=== PATIENT | female | born 1950 | race Caucasian/White ===

== ENCOUNTER 2018-05-02 23:19 | Emergency (ER) | payer OTHER ==
--- OUTSIDE RECORDS SUMMARY | 2018-05-02 23:21 | XMS REPORT | Clinical Summary ---
:1950 Author Organization [facility] Address [address] [place] [address] Care Team Providers Name Role Phone Francisco Javier Ivey MD Primary Care Provider Allergies Active Allergy Reactions Severity Noted Date Comments Meperidine 03/13/2018 Latex 03/13/2018 Penicillins 03/13/2018 Sulfa (Sulfonamide Antibiotics) 03/13/2018 Medications Medication Sig Dispensed Refills Start Date End Date Status lisinopril Take 20 mg by 0 Active (PRINIVIL,ZESTRIL) 20 mouth daily. mg tablet pravastatin (PRAVACHOL) Take 40 mg by 0 Active 40 MG tablet mouth daily. omeprazole (PriLOSEC) Take 20 mg by 0 Active 20 MG capsule mouth daily. citalopram (CeleXA) 10 Take 10 mg by 0 Active MG tablet mouth daily. Active Problems Not on file Encounters Date Type Specialty Care Team Description 03/18/2018 Anesthesia Event Orthopedic Surgery Julio Solano II, MD 03/18/2018 Surgery Orthopedic Surgery Tyson, ARTHROSCOPY SHOULDER Ced Fuentes MD DECOMPRESSION 03/18/2018 Hospital Encounter Orthopedic Surgery Ced Mehta MD after 05/01/2017 Social History Tobacco Use Types Packs/Day Years Used Date Never Smoker Smokeless Tobacco: Never Used Alcohol Use Drinks/Week oz/Week Comments No Sex Assigned at Date Recorded Not on file Job Start Date Occupation Industry Not on file Not on file Not on file Travel History Travel Start Travel End No recent travel history available. Last Filed Vital Signs Vital Sign Reading Time Taken Blood Pressure 134/63 03/18/2018 10:46 AM CDT Pulse 72 03/18/2018 10:46 AM CDT Temperature 36.4 C (97.6 F) 03/18/2018 10:33 AM CDT Respiratory Rate 20 03/18/2018 10:46 AM CDT Oxygen Saturation 94% 03/18/2018 10:46 AM CDT Inhaled Oxygen Concentration - - Weight 89.4 kg (197 lb) 03/18/2018 6:30 AM CDT Height 168.9 cm (5' 6.5") 03/18/2018 6:30 AM CDT Body Mass Index 31.32 03/18/2018 6:30 AM CDT Plan of Treatment Not on file Procedures Procedure Name Priority Date/Time Associated Diagnosis Comments AL AN ELECTIVE Routine 03/18/2018 7:39 AM ENDOTRACHEAL AIRWAY CDT Procedure Note - Samantha Robertson Jr., CRNA - 03/18/2018 7:39 AM CDT Airway Date/Time: 03/18/2018 7:39 AM Performed by: SAMANTHA ROBERTSON JR Authorized by: JULIO SOLANO II Location: OR Urgency: Elective Difficult Airway: No Performed by: resident/FLY FISHING GUIDE/AA Preoxygenated with 100% O2: Yes C-spine Precautions Maintained Throughout: Yes Mask Ventilation: Easy mask Final Airway Type: Endotracheal airway Final Endotracheal Airway: ETT Cuffed: Yes Technique Used: Direct laryngoscopy Devices/Methods Used in Placement: Intubating stylet Insertion Site: Oral Blade Type: Kaiser Laryngoscope Blade/Videolaryngoscope Blade Size: 2 ETT Size (mm): 7.0 Cuff at minimum occlusion pressure: Yes Measured from: Lips ETT to Lips (cm): 22 Placement Verified by: CO2 detection, direct visualization and equal breath sounds Laryngoscopic view: Grade I - full view of glottis Rapid Sequence Induction (RSI): No Modified RSI: No Number of Attempts at Approach: 1 ARTHROSCOPY, SHOULDER 03/18/2018 7:30 AM CDT Calcific tendinitis of right shoulder after 05/01/2017 Results Not on fileafter 05/01/2017 Insurance Payer Benefit Plan / Group Subscriber ID Type Phone Address HUMANA MEDICARE HUMANA MEDICARE PPO/PFFS/ERS [facility] xxxxxxxxx PPO [phone] (Work) Advance Directives Patient has advance care planning documents on file. For more information, please contact:Vincent Gilmore[address] [place] [address]
[2018-05-03] MEDS ORDERED: ALBUTEROL 2.5 MG/3 ML NEB SOL ONE (01:35)
[2018-05-03] MEDS ORDERED: DEXAMETHASONE 10 MG/ML VIAL ONE (01:35)
--- NOTE | 2018-05-03 01:50 | ER ---
Nurse's Notes [facility] Name: Lucia Guardado Age: 68 yrs Sex: Female : 1950 Arrival Date: 05/02/2018 Time: 23:23 Bed 17 Private MD: Cordelia Ivey C Diagnosis: Acute laryngitis;Cough Presentation: 05/02 23:42 Presenting complaint: Patient states: that yesterday she started ot having a sore fc throat and left ear pain. Throat now hurts to swallow. Transition of care: patient was not received from another setting of care. Onset of symptoms was May 01, 2018. Risk Assessment: Do you want to hurt yourself or someone else? Patient reports no desire to harm self or others. Initial Sepsis Screen: Does the patient meet any 2 criteria? No. Patient's initial sepsis screen is negative. Does the patient have a suspected source of infection? No. Patient's initial sepsis screen is negative. Care prior to arrival: None. 23:42 Method Of Arrival: Ambulatory 23:42 Acuity: TAB 4 fc Historical: - Allergies: 23:45 Codeine; fc 23:45 Sulfa (Sulfonamide Antibiotics); fc 23:45 PENICILLINS; fc - Home Meds: 23:45 Centrum Oral daily [Active]; lisinopril 20 mg Oral tab 1 tab once daily [Active]; fc omeprazole 20 mg Oral cpDR 1 cap 2 times per day [Active]; citalopram 10 mg tab 1 tab once daily [Active]; - PMHx: 23:45 Anxiety; Hypertension; Hyperlipidemia; GERD; fc - PSHx: 23:45 ; Appendectomy; fc - Immunization history:: Last tetanus immunization: up to date Flu vaccine is up to date. - Social history:: Smoking status: Patient/guardian denies using tobacco, Patient/guardian denies using alcohol, street drugs. - Ebola Screening: : Patient negative for fever greater than or equal to 101.5 degrees Fahrenheit, and additional compatible Ebola Virus Disease symptoms Patient denies exposure to infectious person Patient denies travel to an Ebola-affected area in the 21 days before illness onset. Screenin:47 Abuse screen: Denies threats or abuse. Nutritional screening: No deficits noted. fc Tuberculosis screening: No symptoms or risk factors identified. Fall Risk None identified. Assessment: 05/03 00:07 General: Appears in no apparent distress. comfortable, Behavior is calm, cooperative, rr5 appropriate for age. Pain: Complains of pain in left ear and throat Pain currently is 6 out of 10 on a pain scale. Quality of pain is described as aching, Pain began gradually, Is intermittent. Neuro: Level of Consciousness is awake, alert, obeys commands, Oriented to person, place, time. Cardiovascular: Capillary refill is > 3 seconds Patient's skin is warm and dry. Respiratory: Reports cough that is Airway is patent Respiratory effort is even, unlabored, Respiratory pattern is regular, symmetrical, Breath sounds are clear bilaterally. GI: Abdomen is round. : No signs and/or symptoms were reported regarding the genitourinary system. EENT: Ear canal yellowish, dry substance noted in the left ear . Throat is reddened with gag reflex present. 01:20 Reassessment: awaiting for result. no complaints made. rr5 02:34 Reassessment: Patient appears in no apparent distress at this time. Patient and/or rr5 family updated on plan of care and expected duration. Pain level reassessed. discharge instruction and prescription explained without questions made. Patient states feeling better. Patient states symptoms have improved. Vital Signs: 05/02 23:45 BP 155 / 68; Pulse 76; Resp 18; Temp 98.0(O); Pulse Ox 96% on R/A; Weight 88.9 kg (R); fc Height 5 ft. 6 in. (167.64 cm) (R); Pain 6/10; 05/03 00:11 BP 139 / 63; Pulse 75; Resp 17; Pulse Ox 98% on R/A; rr5 02:00 BP 153 / 61; Pulse 72; Resp 18; Pulse Ox 100% on R/A; rr5 02:34 BP 143 / 70; Pulse 70; Resp 17; Pulse Ox 99% on R/A; rr5 05/02 23:45 Body Mass Index 31.63 (88.90 kg, 167.64 cm) ED Course: 05/02 23:23 Patient arrived in ED. es 23:23 Cordelia Ivey MD is Private Physician. es 23:43 Triage completed. fc 23:45 Arm band placed on Patient placed in an exam room, on a stretcher. fc 23:47 Patient has correct armband on for positive identification. Bed in low position. Call light in reach. Side rails up X 1. 12 00:02 Ronan Pittman, RN is Primary Nurse. rr5 00:46 Lyndsay Olvera FNP-C is [facility]. snw 00:46 Jace Harrell MD is Attending Physician. snw 01:49 Cordelia Ivey MD is Referral Physician. snw 02:36 No provider procedures requiring assistance completed. Patient did not have IV access rr5 during this emergency room visit. Administered Medications: 01:35 Drug: Albuterol 2.5 mg Route: Inhalation; rr5 02:32 Follow up: Response: No adverse reaction; Marked relief of symptoms rr5 01:37 Drug: Decadron - Dexamethasone 10 mg {Note: po.} Route: IVP; Site: Other; rr5 02:32 Follow up: Response: No adverse reaction; Marked relief of symptoms rr5 Outcome: 01:50 Discharge ordered by MD. snw 02:36 Discharged to home ambulatory, with family. rr5 02:36 Condition: stable 02:36 Discharge instructions given to patient, family, Instructed on discharge instructions, follow up and referral plans. medication usage, Demonstrated understanding of instructions, follow-up care, medications, Prescriptions given X 3. 02:37 Patient left the ED. rr5 Signatures: Lyndsay Olvera FNP-C FNP-Serena Gaston Felicia, RN RN Ronan Pittman, RN RN rr5
--- NOTE | 2018-05-03 01:51 | EDPHYS ---
Physician Documentation [facility] Name: Lucia Guardado Age: 68 yrs Sex: Female : 1950 Arrival Date: 05/02/2018 Time: 23:23 Bed 17 Private MD: Cordelia Ivey C ED Physician Jace Harrell HPI: 05/03 01:12 This 68 yrs old Female presents to ER via Ambulatory with complaints of Sore snw Throat, Ear Pain. 01:12 The patient presents with sore throat. The patient describes throat pain as constant, snw scratchy. Onset: The symptoms/episode began/occurred suddenly, today. Severity of symptoms: At their worst the symptoms were moderate. Associated signs and symptoms: Pertinent positives: cough, Pertinent negatives fever. The patient has not experienced similar symptoms in the past. The patient has not recently seen a physician. Historical: - Allergies: 05/02 23:45 Codeine; fc 23:45 Sulfa (Sulfonamide Antibiotics); fc 23:45 PENICILLINS; fc - Home Meds: 23:45 Centrum Oral daily [Active]; lisinopril 20 mg Oral tab 1 tab once daily [Active]; fc omeprazole 20 mg Oral cpDR 1 cap 2 times per day [Active]; citalopram 10 mg tab 1 tab once daily [Active]; - PMHx: 23:45 Anxiety; Hypertension; Hyperlipidemia; GERD; fc - PSHx: 23:45 ; Appendectomy; fc - Immunization history:: Last tetanus immunization: up to date Flu vaccine is up to date. - Social history:: Smoking status: Patient/guardian denies using tobacco, Patient/guardian denies using alcohol, street drugs. - Ebola Screening: : Patient negative for fever greater than or equal to 101.5 degrees Fahrenheit, and additional compatible Ebola Virus Disease symptoms Patient denies exposure to infectious person Patient denies travel to an Ebola-affected area in the 21 days before illness onset. ROS: 05/03 01:11 Constitutional: Negative for fever, chills, and weight loss, Eyes: Negative for injury, snw pain, redness, and discharge, ENT: Negative for injury and discharge, positive for sore throat Neck: Negative for injury, pain, and swelling. Cardiovascular: Negative for chest pain, palpitations, and edema. Abdomen/GI: Negative for abdominal pain, nausea, vomiting, diarrhea, and constipation, Back: Negative for injury and pain, : Negative for injury, bleeding, discharge, and swelling, MS/Extremity: Negative for injury and deformity, Skin: Negative for injury, rash, and discoloration, Neuro: Negative for headache, weakness, numbness, tingling, and seizure. Respiratory: Positive for cough, Negative for sputum production. Exam: : Constitutional: This is a well developed, well nourished patient who is awake, alert, snw and in no acute distress. Head/Face: Normocephalic, atraumatic. Eyes: Pupils equal round and reactive to light, extra-ocular motions intact. Lids and lashes normal. Conjunctiva and sclera are non-icteric and not injected. Cornea within normal limits. Periorbital areas with no swelling, redness, or edema. Neck: Trachea midline, no thyromegaly or masses palpated, and no cervical lymphadenopathy. Supple, full range of motion without nuchal rigidity, or vertebral point tenderness. No Meningismus. Chest/axilla: Normal chest wall appearance and motion. Nontender with no deformity. No lesions are appreciated. Cardiovascular: Regular rate and rhythm with a normal S1 and S2. No gallops, murmurs, or rubs. Normal PMI, no JVD. No pulse deficits. Abdomen/GI: Soft, non-tender, with normal bowel sounds. No distension or tympany. No guarding or rebound. No evidence of tenderness throughout. Back: No spinal tenderness. No costovertebral tenderness. Full range of motion. Skin: Warm, dry with normal turgor. Normal color with no rashes, no lesions, and no evidence of cellulitis. MS/ Extremity: Pulses equal, no cyanosis. Neurovascular intact. Full, normal range of motion. Neuro: Awake and alert, GCS 15, oriented to person, place, time, and situation. Cranial nerves II-XII grossly intact. Motor strength 5/5 in all extremities. Sensory grossly intact. Cerebellar exam normal. Normal gait. : ENT: Ear canal(s): are normal, TM's: are normal, Nose: is normal, Mouth: is normal, Posterior pharynx: is normal, Uvula: midline, erythema, that is moderate, Voice: is hoarse. 01:09 Respiratory: the patient does not display signs of respiratory distress, Respirations: normal, Breath sounds: wheezing: expiratory that is mild, is scattered. Vital Signs: 05/02 23:45 BP 155 / 68; Pulse 76; Resp 18; Temp 98.0(O); Pulse Ox 96% on R/A; Weight 88.9 kg (R); fc Height 5 ft. 6 in. (167.64 cm) (R); Pain 6/10; 05/03 00:11 BP 139 / 63; Pulse 75; Resp 17; Pulse Ox 98% on R/A; rr5 02:00 BP 153 / 61; Pulse 72; Resp 18; Pulse Ox 100% on R/A; rr5 02:34 BP 143 / 70; Pulse 70; Resp 17; Pulse Ox 99% on R/A; rr5 05/02 23:45 Body Mass Index 31.63 (88.90 kg, 167.64 cm) fc MDM: 01:00 Patient medically screened. snw 01:51 Data reviewed: vital signs, nurses notes. Data interpreted: Pulse oximetry: on room air snw is 98 %. Interpretation: normal. Counseling: I had a detailed discussion with the patient and/or guardian regarding: the historical points, exam findings, and any diagnostic results supporting the discharge/admit diagnosis, the presence of at least one elevated blood pressure reading (>120/80) during this emergency department visit, the need for outpatient follow up, to return to the emergency department if symptoms worsen or persist or if there are any questions or concerns that arise at home. Special discussion: Based on the history and exam findings, there is no indication for further emergent testing or inpatient evaluation. I discussed with the patient/guardian the need to see the primary care provider for further evaluation of the symptoms. 05/03 00:22 Order name: Strep fc 05/03 00:47 Order name: Flu snw 05/03 00:56 Order name: Group A Streptococcus Rapid Sc; Complete Time: : EDMS 05/03 01:41 Order name: Influenza Screen (A ; Complete Time: :48 EDMS Administered Medications: 01:35 Drug: Albuterol 2.5 mg Route: Inhalation; rr5 02:32 Follow up: Response: No adverse reaction; Marked relief of symptoms rr5 01:37 Drug: Decadron - Dexamethasone 10 mg {Note: po.} Route: IVP; Site: Other; rr5 02:32 Follow up: Response: No adverse reaction; Marked relief of symptoms rr5 Disposition: 07:05 Co-signature as Attending Physician, Jace Harrell MD. Disposition: 05/03/18 01:50 Discharged to Home. Impression: Acute laryngitis, Cough. - Condition is Stable. - Discharge Instructions: Laryngitis, Cool Mist Vaporizer, Cough, Adult, [id number]. - Prescriptions for Zyrtec 10 mg Oral Tablet - take 1 tablet by ORAL route once daily As needed; 20 tablet. Prednisone 20 mg Oral Tablet - take 2 tablet by ORAL route once daily for 5 days; 10 tablet. Pepcid 20 mg Oral Tablet - take 1 tablet by ORAL route once daily; 20 tablet. - Medication Reconciliation Form, Thank You Letter, Antibiotic Education, Prescription Opioid Use form. - Follow up: Cordelia Ivey MD; When: 2 - 3 days; Reason: Recheck today's complaints, Continuance of care, Re-evaluation by your physician. Follow up: Emergency Department; When: As needed; Reason: Worsening of condition. Signatures: Dispatcher [employer] EDMS Lyndsay Olvera, MIMA-C LABORATORY CHEMICAL ASSISTANT-Csnw Odalis Mars RN RN Jace Harrell MD MD Ronan Pittman RN RN rr5 Corrections: (The following items were deleted from the chart) 02:37 01:50 05/03/2018 01:50 Discharged to Home. Impression: Acute laryngitis; Cough. rr5 Condition is Stable. Forms are Medication Reconciliation Form, Thank You Letter, Antibiotic Education, Prescription Opioid Use. Follow up: Cordelia Ivey; When: 2 - 3 days; Reason: Recheck today's complaints, Continuance of care, Re-evaluation by your physician. Follow up: Emergency Department; When: As needed; Reason: Worsening of condition. snw
[2018-05-03 13:07] VITALS: TEMP 98
[2018-05-03 13:11] VITALS: BP 143/70; O2SAT 99
== END 2018-05-03 02:37 | disposition home or self-care (01) ==
LOC: ER 23:19
DX: J04.0 Acute laryngitis (principal); R05 Cough; E78.5 Hyperlipidemia, unspecified; I10 Essential (primary) hypertension; K21.9 Gastro-esophageal reflux disease without esophagitis; F41.9 Anxiety disorder, unspecified; Z79.899 Other long term (current) drug therapy
CPT/HCPCS: 87070; 87081; 87804 ×2; 96374; 99284; J1100

== ENCOUNTER 2018-10-08 09:05 | Observation (INO) | payer OTHER ==
--- OUTSIDE RECORDS SUMMARY | 2018-10-08 09:24 | XMS REPORT | Clinical Summary ---
:1950 Author Organization [facility] Address [address] [place] [address] Care Team Providers Name Role Phone Francisco [...] Encounter Orthopedic Surgery Ced Mehta MD after 10/07/2017 Social History Tobacco Use Types Packs/Day Years [...] Procedure Name Priority Date/Time Associated Diagnosis Comments MA AN ELECTIVE Routine 03/18/2018 7:39 AM ENDOTRACHEAL AIRWAY CDT Procedure Note - Samantha Robertson Jr., CRNA - 03/18/2018 7:39 AM CDT Airway Date/Time: 03/18/2018 7:39 AM Performed by: SAMANTHA ROBERTSON JR Authorized by: JULIO SOLANO II Location: OR Urgency: Elective Difficult Airway: No Performed by: resident/OUTREACH LIAISON/AA Preoxygenated with 100% O2: Yes C-spine Precautions [...] CDT Calcific tendinitis of right shoulder after 10/07/2017 Results Not on fileafter 10/07/2017 Insurance Payer Benefit Plan / Group Subscriber ID Type Phone Address HUMANA MEDICARE HUMANA MEDICARE PPO/PFFS/ERS [facility] xxxxxxxxx PPO [phone] (Work) Advance Directives Patient has advance care planning documents on file. For more information, please contact:Vincent Gilmore[address] [place] [address]
--- NOTE | 2018-10-08 12:04 | RAD REPORT ---
EXAM DESCRIPTION: Bienvenido Martino (2 Views)10/08/2018 11:56 am CLINICAL HISTORY: Hypotension COMPARISON: February 2018 FINDINGS: The lungs appear clear of acute infiltrate. The heart is normal size IMPRESSION: No acute abnormalities displayed
[2018-10-08] MEDS: CEFTRIAXONE/SWI 1gm 1 GM/10 ML SYR IV SCH ×2 (13:00→21:25)
[2018-10-08] MEDS ORDERED: CEFTRIAXONE 1 GM/NS 50 ML 1 GM/50 ML BAG IV SCH (13:00)
[2018-10-08 13:09] LABS: Absolute Lymphocytes (CBC) 1.2 K/uL (0.7-4.9); Absolute Monocytes 0.3 K/uL (0.1-1.3); Absolute Neutrophil 5.1 K/uL (1.8-8.0); Basophils % 0.4 % (0-1.3); MPV 8.4 fL (7.6-11.3); Monocytes % 4.9 % (3.3-12.3)
[2018-10-08] MEDS: NA CHLORIDE 0.9% 1,000 ML IV SCH ×2 (13:23→21:29)
[2018-10-08 13:27] LABS: Albumin 3.7 g/dL (3.4-5.0); Magnesium 2.1 mg/dL (1.8-2.4); Potassium 3.7 mmol/L (3.5-5.1); Protein, Total 6.8 g/dL (6.4-8.2)
[2018-10-08 14:13] LABS: Urine Appearance CLEAR; Urine Bilirubin NEGATIVE (NEG); Urine Blood NEGATIVE (NEG); Urine Color YELLOW; Urine Glucose NEGATIVE (NEG); Urine Protein NEGATIVE (NEG)
[2018-10-08 14:29] LABS: Urine Bacteria <20 /HPF (<20); Urine Culture Reflex Order NOT NEEDED; Urine RBC <5 /HPF (NONE SEEN)
[2018-10-08] MEDS ORDERED: ENOXAPARIN 40 MG/0.4 ML SQ SCH (17:00)
[2018-10-09 01:37] VITALS: O2SAT 94
--- NOTE | 2018-10-09 04:20 | HP ---
Date of Admission: 10/08/2018 Chief Complaint: Low blood pressure and sore throat. History Of Present Illness: Ms. Guardado is a pleasant female patient, who called office yesterday during later part of the day and informed the office staff that her blood pressure had dropped low yesterday while she was at the store and she was asked to come see me today and was also told not to take her blood pressure medication until she gets evaluated by me today. She came into office this morning with her , and she informed me that yesterday around noontime, she was at grocery store with her daughter, and while she was walking all of a sudden she felt very weak, and she felt like as if she was going to pass out, so she sat down, and within a few minutes, she felt better. She was able to walk outside the grocery store to the car and went home. Later on yesterday evening time, she started to have sore throat feeling. Her systolic blood pressure yesterday was between 100-110. She denies any vomiting, diarrhea. No expectoration. No hemoptysis. No blood in stool. No urinary complaints. No chest pain. No shortness of breath. She continues to feel weak and I saw her today. After I evaluated, she was admitted to the hospital. Past Medical History: Significant for osteopenia, diverticulosis, impaired fasting glucose, hypertension, gastroesophageal reflux disease, hyperlipidemia, depression, insomnia, osteoarthritis at multiple sites. Past Surgical History: Appendectomy, arthroscopic knee surgery, . Allergies: SULFA, EGGS, AND PENICILLIN. Family History: Coronary artery disease, hypertension, and lung cancer. Social History: Negative for smoking or alcohol use. Medications: Caltrate plus D 1 tablet 2 times a day, Centrum Silver 1 tablet daily, citalopram 10 mg daily, lisinopril 20 mg daily, omeprazole 20 mg 2 times a day, simvastatin 40 mg daily, Tylenol PM 1 tab at bedtime as needed for sleep. Review of Systems: Respiratory: As mentioned above. Cardiovascular: As mentioned above. All other systems reviewed and negative. Physical Examination: Vital Signs: Height 5 feet 8 inches, weight 172 pounds, temperature 97.8, pulse 69, respiratory rate 15, supine blood pressure was 136/80, sitting blood pressure was 134/78, and standing blood pressure was 100/60. General: The patient is awake, alert, appears acutely ill, not in distress. HEENT: Head atraumatic, normocephalic. Conjunctivae nonerythematous. Sclerae white. Mouth, no thrush or edema noted. Ears/Nose, no mass, lesion, discharge noted. Throat examination, the patient has significant erythematous mucosa in pharyngeal region, no exudate. Neck: Supple. No JVD, lymph nodes, bruit, thyromegaly noted. Lungs: Bilateral good equal air entry. Clear to auscultation. No rhonchi. No rales. Heart: Normal heart sounds, no murmur or gallop. Abdomen: Soft, bowel sounds normal. No guarding, rigidity, tenderness, mass, hepatosplenomegaly, distention, or bruit noted. Extremities: No leg edema. No calf tenderness. Skin: No rash, ulcer, cellulitis. Lymphatics: No lymph node enlargement in neck, supraclavicular, infraclavicular region. Neuro: No focal neurological deficit. Chest: Unremarkable. External Genitalia: Deferred. Rectal: Deferred. Laboratory Data: Chest x-ray; no acute cardiopulmonary changes. Urinalysis; negative. Influenza A and B test negative. Streptococcal screen negative. Liver function test normal. Lactic acid 0.9. Procalcitonin less than 0.50. Liver function test normal. Sodium 144, potassium 3.7, chloride 110, bicarb 29 , BUN 19, creatinine 1.07, glucose 130. White count 6.9, hemoglobin 14.2, platelets 210. Impression: 1. Volume depletion. 2. Acute pharyngitis. 3. Hypertension. 4. Hyperlipidemia. 5. Osteoarthritis, multiple sites. 6. Osteopenia. 7. Gastroesophageal reflux disease. 8. Diverticulosis. 9. Impaired fasting glucose. 10. Gastroesophageal reflux disease. Plan: Admit the patient to hospital for further evaluation and management of this problem. The patient is appropriate for observation. We will go ahead and give IV fluid. Empiric IV antibiotic will be started using ceftriaxone. We will follow up on blood culture results. I will see her tomorrow morning for followup. We will give home medications per order. Depending on the patient's condition tomorrow, we will decide if we can discharge her to go home tomorrow with oral antibiotics or not. DVT prophylaxis will be given using Lovenox. Details of plan of treatment discussed with the patient and her at the office. MIREYA/DOT Voice ID: [id number]
[2018-10-09] MEDS: NA CHLORIDE 0.9% 1,000 ML IV SCH (05:37)
[2018-10-09 06:43] LABS: Absolute Lymphocytes (CBC) 0.6 K/uL (0.7-4.9); Absolute Monocytes 0.4 K/uL (0.1-1.3); Basophils % 0.6 % (0-1.3); Eosinophils % 5.8 % (0-4.4); Hematocrit 38.5 % (36.0-45.0); Lymphocytes % 14.2 % (15.3-44.8); Monocytes % 9.3 % (3.3-12.3); RBC Red Blood Cell Count 4.37 M/uL (3.86-4.86)
[2018-10-09 06:50] LABS: Potassium 4.3 mmol/L (3.5-5.1)
[2018-10-09] MEDS: CEFTRIAXONE/SWI 1gm 1 GM/10 ML SYR IV SCH (08:25)
[2018-10-09 08:37] VITALS: BP 138/65; TEMP 97.4
--- NOTE | 2018-10-10 06:02 | DS ---
Date of Discharge: 10/09/2018 Disposition: Discharged to go home. Physical Examination: HEENT: Unremarkable. Lungs: Clear to auscultation. Heart: Sounds normal. Abdomen: Soft. Bowel sounds normal. No guarding, rigidity, tenderness, distention. Extremities: No leg edema. Labs And Investigations Done During This Hospitalization: White count yesterday 6.9, hemoglobin 14.2, platelets 210. Today, white count 4.3, hemoglobin 13.2 and platelet count of 165. Yesterday sodium 144, potassium 3.7 , chloride 110, bicarb 29, BUN 19, creatinine 1.07. Today, BUN 13, creatinine 0.89. Procalcitonin yesterday less than 0.5. Hospital Course: Ms. Guardado is a very pleasant 68-year-old female patient who came into office with low blood pressure and sore throat. Please see dictated H and P for more information. After patient was evaluated at office, she was admitted to the hospital. Her influenza A and B screens were negative. Streptococcal screen was negative. Chest x-ray was unremarkable. The patient was started on IV ceftriaxone. This morning, she is feeling much better. Sore throat is better. Blood pressure has improved. She was given IV fluid and she is ambulating well without any dizziness, and no more problem with low blood pressure. Her condition has improved significantly and was discharged in stable condition with following discharge medication and instruction. Final Diagnoses: 1. Volume depletion. 2. Acute pharyngitis. 3. Hypertension. 4. Hyperlipidemia. 5. Osteoarthritis, multiple sites. 6. Osteopenia. 7. Gastroesophageal reflux disease. 8. Diverticulosis. 9. Impaired fasting glucose. Discharge Medications And Instructions: 1. Continue all prior home medication. 2. Take cefuroxime 250 mg twice a day for 1 week. 3. Follow up at my office next week on Saturday or Saturday, call office for appointment. 4. Drink about 50-60 ounces of water a day. MIREYA/MODL Voice ID: [id number] Report ID: [id number] MTDD
== END 2018-10-09 10:20 | disposition home or self-care (01) ==
LOC: INTOOBSV 09:21 → 2ND 09:21
PROVIDERS: ADMIT Internal Medicine; ATTEND Internal Medicine
DX: E86.9 Volume depletion, unspecified (principal); J02.9 Acute pharyngitis, unspecified; I10 Essential (primary) hypertension; E78.5 Hyperlipidemia, unspecified; M19.90 Unspecified osteoarthritis, unspecified site; M85.80 Other specified disorders of bone density and structure, unspecified site; K21.9 Gastro-esophageal reflux disease without esophagitis; Z88.0 Allergy status to penicillin; Z88.2 Allergy status to sulfonamides; Z91.012 Allergy to eggs
CPT/HCPCS: 87040; 87070; 87088; 85025 ×2; 81001; 87086; 80048; 36415; 83735; 87081; 83605; 80053; 84145; 87804 ×2; 71046; J1650; J0696 ×3; J7030 ×3; G0379; G0378

== ENCOUNTER 2019-03-05 14:15 | Observation (INO) | payer OTHER ==
[2019-03-05 16:31] VITALS: BMI 29.9
[2019-03-05 17:47] LABS: Absolute Lymphocytes (CBC) 1.6 K/uL (0.7-4.9); Basophils % 0.6 % (0-1.3); Hematocrit 40.7 % (36.0-45.0); Lymphocytes % 29.6 % (15.3-44.8); RBC Red Blood Cell Count 4.55 M/uL (3.86-4.86)
[2019-03-05] MEDS ORDERED: Levofloxacin500mg IV 500 MG/100 ML BAG IV SCH (18:00)
[2019-03-05] MEDS: NA CHLORIDE 0.9% 1,000 ML IV SCH (18:18)
[2019-03-05] MEDS: METRONIDAZOLE 500mg IVPB 500 MG/100 ML BAG IV SCH (18:19)
[2019-03-05 18:22] LABS: Albumin 3.4 g/dL (3.4-5.0); Bilirubin Total 0.6 mg/dL (0.2-1.0); Potassium 3.7 mmol/L (3.5-5.1)
[2019-03-05 19:42] LABS: Urine Appearance CLEAR; Urine Blood NEGATIVE (NEG); Urine Color DK YELLOW; Urine Glucose NEGATIVE (NEG); Urine Protein NEGATIVE (NEG); Urine Specific Gravity >=1.030 (1.005-1.030); Urine pH 5.5 (5.0-7.0)
[2019-03-05 19:55] LABS: Urine Bilirubin NEGATIVE (NEG); Urine Microscopic Reflex ORDER UMIC
[2019-03-05 19:56] LABS: Urine Amorphous Sediment 1+ /HPF (NONE SEEN); Urine Bacteria >50 /HPF (<20); Urine Culture Reflex Order NOT NEEDED; Urine Mucus 2+ /HPF (NONE SEEN); Urine RBC <5 /HPF (NONE SEEN)
[2019-03-05] MEDS ORDERED: ENOXAPARIN 40 MG/0.4 ML SQ ONE (20:06)
[2019-03-05] MEDS ORDERED: ONDANSETRON 4 MG/2 ML VIAL IV PRN (20:09)
[2019-03-05] MEDS ORDERED: ACETAMINOPHEN 500 MG TAB PO PRN (20:09)
[2019-03-06] MEDS: METRONIDAZOLE 500mg IVPB 500 MG/100 ML BAG IV SCH ×3 (01:02→17:00)
[2019-03-06] MEDS: NA CHLORIDE 0.9% 1,000 ML IV SCH ×2 (05:12→10:00)
[2019-03-06] MEDS ORDERED: COSYNTROPIN 0.25 MG VIAL IV SCH (08:00)
[2019-03-06 10:47] VITALS: O2SAT 99
[2019-03-06 15:28] VITALS: BP 153/74
[2019-03-06] MEDS ORDERED: ENOXAPARIN 40 MG/0.4 ML SQ SCH (17:00)
[2019-03-06 17:46] VITALS: TEMP 98
--- NOTE | 2019-03-06 19:04 | HP ---
Date of Admission: 03/05/2019 Chief Complaint: Not feeling good, abdominal pain, back pain. History Of Present Illness: This is a 68-year-old pleasant female patient who came into office with 2 days history of lower abdominal pain in the suprapubic region and lower back pain. She is also hav ing some urinary frequency, urgency, burning sensation on urination. She feels very weak and does no t feel good at all, feels very tired, and has generalized body ache. She came into office with this. After she was evaluated, decision was made to admit her to the hospital. Medications: List reviewed. Review of Systems: GI: As mentioned above. Genitourinary: As mentioned above. Constitutional: As mentioned above. All other systems reviewed and negative. Allergies: TO SULFA, EGGS, AND PENICILLIN. Past Medical History: Significant for osteopenia, diverticulosis, impaired fasting glucose, hypotens ion, gastroesophageal reflux disease, hyperlipidemia, depression, insomnia, osteoarthritis at multipl e sites. Past Surgical History: Appendectomy, arthroscopic knee surgery, and . Family History: Significant for coronary artery disease, hypertension, and lung cancer. Social History: Negative for smoking and alcohol use. Physical Examination: Vital Signs: When she came into office today, her weight was 185 pounds, height 67.5 inches, blood p ressure 109/69, pulse 67, temperature 98.3. General: The patient appears weaker than normal, feels and looks tired. HEENT: Head atraumatic, normocephalic. Conjunctivae nonerythematous. Sclerae white. Mouth, no thr ush or edema noted. Ears/Nose, no mass, lesion, discharge noted. Neck: Supple. No JVD, lymph nodes, bruit, thyromegaly noted. Lungs: Bilateral good equal air entry. Clear to auscultation. No rhonchi. No rales. Heart: Normal heart sounds, no murmur or gallop. Abdomen: The patient has left lower quadrant abdominal tenderness mild. No rebound tenderness, no g uarding, no rigidity. Bowel sounds normoactive. No distention. Extremities: No leg edema. No calf tenderness. Skin: No rash, ulcer, cellulitis. Lymphatics: No lymph node enlargement in neck, supraclavicular, infraclavicular region. Neuro: No focal neurological deficit. Chest: Unremarkable. External Genitalia: Deferred. Rectal: Deferred. Laboratory Data: White count 5.4, hemoglobin 13.6, platelets 213. Sodium 145, potassium 3.7, chlori de 112, bicarb 29, BUN 15, creatinine 0.96, glucose 83. Liver function tests unremarkable. Procalci tonin less than 0.05. Lactic acid 0.6. Urinalysis positive for nitrite, esterase 1+, WBC 5-10 bacte prasanna more than 50. Impression: 1.Acute pyelonephritis. 2.Rule out acute diverticulitis. 3.Hypotension. 4.Generalized weakness. 5.Rule out adrenal insufficiency. 6.Impaired fasting glucose. 7.Osteoarthritis at multiple sites. 8.Gastroesophageal reflux disease. 9.Hyperlipidemia. 10.Depression. 11.Insomnia. Plan: Admit the patient to hospital for further evaluation and management of this problem. The [facility] ent is appropriate for inpatient and is expected to spend 2 midnights in hospital. We will follow up on urine culture results. Get a CAT scan of abdomen and pelvis without contrast. Start IV antibiot ic, Levaquin, and Flagyl. I will see her tomorrow for followup. Home medications will be continued per order. We will give DVT prophylaxis using Lovenox per order. Tomorrow morning, I will go ahead and order a cortisol stimulation test to rule out adrenal insufficiency. Back in October of this year, t he patient was admitted to the hospital with sore throat and low blood pressure and at this time she is admitted with a different type of infection which is on lower side. We need to make sure there is no evidence of any adrenal insufficiency given her clinical presentation. I will see her tomorrow f or followup. MIREYA/MODL Voice ID: [id number]
--- NOTE | 2019-03-07 05:40 | DS ---
Date of Discharge: 03/06/2019 Disposition: Discharged to go home. Physical Examination: HEENT: Unremarkable. Lungs: Clear to auscultation. Heart: Sounds normal. Abdomen: Soft. Bowel sounds normal. No guarding, rigidity, tenderness, or distention. Extremities: No leg edema. Laboratory Data: White count was 5.4, hemoglobin 13.6, platelets 213. Sodium 145, potassium 3.7, chloride 112, bicarb 29, BUN 15, creatinine 0.96, glucose 83. Liver function tests unremarkable. Procalcitonin less than 0.04. Urinalysis was abnormal consistent with urinary tract infection and urine culture grew gram-negative rods. Definite identification sensitivity result pending. Hospital Course: A 69-year-old female patient admitted to the hospital with lower abdominal pain, suprapubic pain, and lower back pain. She felt very weak with these symptoms and burning sensation on urination and urinary frequency associated with this. After she was evaluated, she was admitted to the hospital. Her blood pressure was low at office. After she was admitted to the hospital, IV fluid, IV antibiotics were given. This morning, when I saw her, she was feeling much better. A cortisol stimulation test was done this morning , we will follow up on results. Patient was discharged today to go home in stable condition. I did talk to her that her urine culture result is pending. We have option of either keeping her in hospital until we get the final report back or discharge her with oral antibiotics. Follow up on culture results and if we need to change antibiotic depending on the culture results, then we will have to make that decision at that time. Patient feels comfortable going home. Medically, she is stable for discharge. Final Diagnoses: 1. Acute pyelonephritis. 2. Rule out acute diverticulitis. 3. Hypotension. 4. Generalized weakness. 5. Rule out adrenal insufficiency. 6. Impaired fasting glucose. 7. Osteoarthritis at multiple sites. 8. Gastroesophageal reflux disease. 9. Hyperlipidemia. 10. Depression. 11. Insomnia. MIREYA/MODL Voice ID: [id number] Report ID: [id number]
--- NOTE | 2019-03-07 16:18 | RAD REPORT ---
EXAM DESCRIPTION: CT - Abdomen Pelvis Wo Contrast - 03/07/2019 8:39 am CLINICAL HISTORY: abd pain COMPARISON: CT ABD PELVIS W CONTRAST dated 07/08/2015 TECHNIQUE: Axial [address] imaging of the abdomen and pelvis was performed without IV contrast. No IV contrast was given because of allergy, abnormal renal function, patient refusal or physician re quest. Oral contrast given. All CT scans are performed using dose optimization technique as appropriate and may include automated exposure control or mA/KV adjustment according to patient size. FINDINGS: No suspicious findings in the lung bases. The liver, spleen and pancreas show no suspicious findings on non-contrast imaging. Gallbladder and b iliary tree are also without suspicious finding. No hydronephrosis or suspicious renal mass. No significant adrenal finding. Isodense renal masses an d pyelonephritis cannot be excluded in the absence of IV contrast. Urinary bladder is contracted. [place] sebastian and ovaries show no suspicious findings. No dilated bowel loops or bowel wall thickening. Appendectomy clips are seen. No free air, free fluid or inflammatory stranding. No hernia, mass or bulky lymphadenopathy. Disc and bone degenerative changes are present. No pathologic bone process. IMPRESSION: Non-contrast enhanced CT abdomen and pelvis imaging show no significant or suspicious fi nding. Note: Due to prolonged technical difficulties with the PACs- dictation systems, final written report was delayed. Verbal reports were provided at the time of the study and as needed. Full assessment is limited is the absence of IV contrast.
== END 2019-03-06 17:40 | disposition home or self-care (01) ==
LOC: 2ND 14:15 → INTOOBSV 14:15
PROVIDERS: ADMIT Internal Medicine; ATTEND Internal Medicine
DX: N10 Acute pyelonephritis (principal); I95.9 Hypotension, unspecified; R53.1 Weakness; M19.90 Unspecified osteoarthritis, unspecified site; K21.9 Gastro-esophageal reflux disease without esophagitis; E78.5 Hyperlipidemia, unspecified; F32.9 Major depressive disorder, single episode, unspecified; G47.00 Insomnia, unspecified; Z88.2 Allergy status to sulfonamides; Z91.012 Allergy to eggs
CPT/HCPCS: 87040; 87088; 85025; 87086; 36415 ×2; 83605; 87077; 87186; 80053; 82533 ×4; 84145; 82024; 74176; J0834; J1650; J7030 ×2; G0379; G0378 ×3; 81003; 81015

== ENCOUNTER 2020-07-19 13:41 | Emergency (ER) | payer OTHER ==
--- NOTE | 2020-07-19 15:45 | RAD REPORT ---
EXAM DESCRIPTION: RAD - Hip Left 2 View - 07/19/2020 3:16 pm CLINICAL HISTORY: Left hip pain status post injury FINDINGS: A transverse lucency is present within the subtrochanteric left femur. This is equivocal for a nondisplaced fracture. CT or MRI may be helpful for further evaluation Bones are osteoporotic. No dislocation
--- NOTE | 2020-07-19 15:45 | RAD REPORT ---
EXAM DESCRIPTION: RAD - Knee Left 3 View - 07/19/2020 3:16 pm CLINICAL HISTORY: Left knee pain status post injury FINDINGS: No fracture or dislocation is seen. Marked osteoarthritis medial compartment. Patella femoral compartment is also involved. Osteoporosis
[2020-07-19 20:23] LABS: Albumin 3.7 g/dL (3.4-5.0); Potassium 3.7 mmol/L (3.5-5.1); Protein, Total 7.1 g/dL (6.4-8.2)
[2020-07-19 20:24] LABS: Absolute Lymphocytes (CBC) 1.1 K/uL (0.7-4.9); Basophils % 2.6 % (0-1.3); Hematocrit 45.6 % (36.0-45.0); Lymphocytes % 11.4 % (15.3-44.8); MPV 7.9 fL (7.6-11.3); RBC Red Blood Cell Count 5.33 M/uL (3.86-4.86)
--- NOTE | 2020-07-19 21:18 | ER ---
Nurse's Notes [facility] Name: Lucia Guardado Age: 70 yrs Sex: Female : 1950 Arrival Date: 07/19/2020 Time: 14:01 Bed 23 Private MD: Diagnosis: Contusion of knee;Other sprain of left hip Presentation: 07/19 14:20 Chief complaint: Patient states: "I slipped on the side walk and hurt my left leg up to jd3 my hip.". Coronavirus screen: At this time, the client does not indicate any symptoms associated with coronavirus-19. Ebola Screen: Patient negative for fever greater than or equal to 101.5 degrees Fahrenheit, and additional compatible Ebola Virus Disease symptoms. Initial Sepsis Screen: Does the patient meet any 2 criteria? No. Patient's initial sepsis screen is negative. Does the patient have a suspected source of infection? No. Patient's initial sepsis screen is negative. Risk Assessment: Do you want to hurt yourself or someone else? Patient reports no desire to harm self or others. Onset of symptoms was July 19, 2020. 14:20 Method Of Arrival: Wheelchair jd3 14:20 Acuity: TAB 3 jd3 Triage Assessment: 22:00 General: Appears in no apparent distress. Behavior is calm. iw Historical: - Allergies: 14:23 PENICILLINS; jd3 14:23 Sulfa (Sulfonamide Antibiotics); jd3 14:23 Codeine; jd3 14:23 Demerol; jd3 - PMHx: 14:23 Anxiety; GERD; Hyperlipidemia; Hypertension; jd3 - PSHx: 14:23 ; Appendectomy; jd3 - Immunization history:: Adult Immunizations up to date. - Social history:: Smoking status: Patient denies any tobacco usage or history of. Screenin:00 Abuse screen: Denies threats or abuse. Denies injuries from another. Nutritional iw screening: No deficits noted. Tuberculosis screening: No symptoms or risk factors identified. Fall Risk Fall in past 12 months (25 points). Assessment: 21:30 General: Appears in no apparent distress. Behavior is calm, cooperative. Pain: iw Complains of pain in left leg. Neuro: Level of Consciousness is awake, alert, obeys commands, Oriented to person, place, time, situation, Moves all extremities. Cardiovascular: Patient's skin is warm and dry. Respiratory: Respiratory effort is even, unlabored, Respiratory pattern is regular. Derm: Skin is intact. Musculoskeletal: Range of motion: limited in left hip. Vital Signs: 14:21 BP 148 / 84; Pulse 77; Resp 16 S; Temp 97.4(TE); Pulse Ox 99% on R/A; Weight 86.18 kg jd3 (R); Height 5 ft. 6 in. (167.64 cm) (R); Pain 9/10; 14:21 Body Mass Index 30.67 (86.18 kg, 167.64 cm) jd3 ED Course: 14:01 Patient arrived in ED. ds1 14:21 Triage completed. jd3 14:22 Arm band placed on. jd3 15:17 Hip Left 2 View XRAY In Process Unspecified. EDMS 15:17 Knee Left 3 View XRAY In Process Unspecified. EDMS 18:46 Deborah Menjivar RN is Primary Nurse. iw 18:47 Alcon Burdick PA is PHCP. jmm 18:47 Bryce Gallego MD is Attending Physician. jmm 19:20 Initiated transfer at [facility] with Christiana. Stated she would do a bed check and tt3 call back. 20:03 Chest Single View XRAY In Process Unspecified. EDMS 20:09 Hip Left Wo Con In Process Unspecified. EDMS 21:17 Luis Barriga MD is Referral Physician. jmm 22:00 Patient has correct armband on for positive identification. iw 22:30 No provider procedures requiring assistance completed. iw 22:30 Patient did not have IV access during this emergency room visit. iw Administered Medications: 21:47 Drug: Tylenol 1000 mg Route: PO; iw Outcome: 21:17 Discharge ordered by . m 22:30 Discharged to home via wheelchair, with family. iw 22:30 Condition: good 22:30 Discharge instructions given to patient, family, Instructed on discharge instructions, follow up and referral plans. Demonstrated understanding of instructions, follow-up care, Prescriptions given X 1. 22:31 Patient left the ED. tl1 Signatures: Dispatcher [employer] EDMS Alcon Burdick PA PA Randi Otero ds1 Deborah Menjivar RN RN Karley Wild RN RN tl1 Aristeo Bernal RN RN jd3 Thomas Carson3 Corrections: (The following items were deleted from the chart) 07/20 21:50 07/19 22:30 Discharge instructions given to patient, family, Instructed on discharge iw instructions, follow up and referral plans. Demonstrated understanding of instructions, follow-up care, iw
--- NOTE | 2020-07-19 21:18 | EDPHYS ---
Physician Documentation [facility] Name: uLcia Guardado Age: 70 yrs Sex: Female : 1950 Arrival Date: 07/19/2020 Time: 14:01 Bed 23 Private MD: ED Physician Bryce Gallego HPI: 07/19 14:45 This 70 yrs old Female presents to ER via Wheelchair with complaints of Fall jmm Injury. 14:45 Details of fall: The patient fell from an upright position. Onset: The symptoms/episode jmm began/occurred acutely. Associated injuries: The patient sustained left proximal leg, left knee. The patient has not experienced similar symptoms in the past. This is a 70 year old female with a history of GERD, HLP, HTN, that presents to the ED with left groin pain after a fall sustained earlier today. Patient states her left knee fell directly on the pavement. . Historical: - Allergies: 14:23 PENICILLINS; jd3 14:23 Sulfa (Sulfonamide Antibiotics); jd3 14:23 Codeine; jd3 14:23 Demerol; jd3 - PMHx: 14:23 Anxiety; GERD; Hyperlipidemia; Hypertension; jd3 - PSHx: 14:23 ; Appendectomy; jd3 - Immunization history:: Adult Immunizations up to date. - Social history:: Smoking status: Patient denies any tobacco usage or history of. ROS: 19:51 Constitutional: Negative for fever, chills, and weight loss, Cardiovascular: Negative jmm for chest pain, palpitations, and edema, Respiratory: Negative for shortness of breath, cough, wheezing, and pleuritic chest pain. 19:51 MS/extremity: Positive for pain. 19:51 All other systems are negative. Exam: 19:51 Constitutional: This is a well developed, well nourished patient who is awake, alert, jmm and in no acute distress. Head/Face: atraumatic. Eyes: EOMI, no conjunctival erythema appreciated ENT: Moist Mucus Membranes Neck: Trachea midline, Supple Chest/axilla: Normal chest wall appearance and motion. Cardiovascular: Regular rate and rhythm. No edema appreciated Respiratory: Normal respirations, no respiratory distress appreciated Abdomen/GI: Non distended, soft Back: Normal ROM Skin: General appearance color normal 19:51 Musculoskeletal/extremity: pain noted to the left hip joint on flexion, compartments are soft, NVI. 19:51 Skin: Appearance: Color: normal in color. 19:51 Neuro: Orientation: is normal, Mentation: Memory: is normal. 19:51 Psych: Behavior/mood is pleasant, cooperative. Vital Signs: 14:21 BP 148 / 84; Pulse 77; Resp 16 S; Temp 97.4(TE); Pulse Ox 99% on R/A; Weight 86.18 kg jd3 (R); Height 5 ft. 6 in. (167.64 cm) (R); Pain 9/10; 14:21 Body Mass Index 30.67 (86.18 kg, 167.64 cm) jd3 MDM: 18:47 Patient medically screened. [facility] 21:16 Data reviewed: vital signs, nurses notes. Counseling: I had a detailed discussion with carolann the patient and/or guardian regarding: the historical points, exam findings, and any diagnostic results supporting the discharge/admit diagnosis, radiology results, the need for outpatient follow up, to return to the emergency department if symptoms worsen or persist or if there are any questions or concerns that arise at home. ED course: CT is negative. Patient is advised to follow up with ortho for further evaluation. Patient understood and agrees with the plan of care. . 07/19 19:15 Order name: CBC with Diff; Complete Time: 20:27 [facility] 07/19 19:15 Order name: CMP; Complete Time: 20:27 [facility] 07/19 14:24 Order name: Hip Left 2 View XRAY; Complete Time: 18:47 [facility] 07/19 14:24 Order name: Knee Left 3 View XRAY; Complete Time: 18:47 [facility] 07/19 21:04 Order name: SARS-COV-2 RT PCR; Complete Time: 21:14 [facility] 07/19 19:15 Order name: Chest Single View XRAY [facility] 07/19 19:15 Order name: Saline Lock; Complete Time: 19:42 [facility] 07/19 19:49 Order name: Hip Left Wo Con EDMS Administered Medications: 21:47 Drug: Tylenol 1000 mg Route: PO; iw Disposition: 07/19/20 21:17 Discharged to Home. Impression: Contusion of knee, Other sprain of left hip. - Condition is Stable. - Discharge Instructions: Knee Pain, Hip Pain. - Prescriptions for orphenadrine citrate 100 mg Oral Tablet Sustained Release - take 1 tablet by ORAL route 2 times per day As needed; 20 tablet. - Medication Reconciliation Form, Thank You Letter, Antibiotic Education, Prescription Opioid Use form. - Follow up: Luis Barriga MD; When: 2 - 3 days; Reason: Recheck today's complaints, Continuance of care, Re-evaluation by your physician. Addendum: 07/21/2020 06:58 Co-signature as Attending Physician, Bryce Gallego MD I agree with the assessment and c elliott plan of care. Signatures: Dispatcher [employer] [facility] Bryce Gallego MD MD cha Mickail, Joel, PA PA [facility] Deborah Menjivar, AGATA RN iw Karley Brand RN RN tl1 Aristeo Bernal RN RN jd3 Corrections: (The following items were deleted from the chart) 07/19 19:49 19:43 CT LEFT HIP WO CONTRAST ordered. [facility] 19:52 14:45 This is a 70 year old female with a history of GERD, HLP, HTN, that presents to [facility] the ED with left groin pain after a fall sustained earlier today. Patient states her left knee fell directly on the pavement. Patient states she then developed . [facility] 20:11 19:31 CORONAVIRUS+MRCAMERON.BRZ ordered. [facility] 22:31 21:17 07/19/2020 21:17 Discharged to Home. Impression: Contusion of knee; Other sprain tl1 of left hip. Condition is Stable. Forms are Medication Reconciliation Form, Thank You Letter, Antibiotic Education, Prescription Opioid Use. Follow up: Luis Barriga; When: 2 - 3 days; Reason: Recheck today's complaints, Continuance of care, Re-evaluation by your physician. [facility]
[2020-07-19] MEDS ORDERED: ACETAMINOPHEN 500 MG TAB ONE (22:01)
[2020-07-19 22:42] VITALS: BP 148/84; TEMP 97.4; O2SAT 99
--- NOTE | 2020-07-20 07:20 | RAD REPORT ---
EXAM DESCRIPTION: Bienvenido Single View2/ 10:37 pm CLINICAL HISTORY: Chest pain COMPARISON: 2019 FINDINGS: The lungs appear clear of acute infiltrate. The heart is normal size IMPRESSION: No acute abnormalities displayed
--- NOTE | 2020-07-20 08:24 | RAD REPORT ---
EXAM DESCRIPTION: CT - Hip Left Wo Con - 07/19/2020 10:37 pm CLINICAL HISTORY: Left hip pain status post fall COMPARISON: X-ray July 19, 2020 TECHNIQUE: Computed axial tomography left hip obtained with coronal and sagittal reconstruction. All CT scans are performed using dose optimization technique as appropriate and may include automated exposure control or mA/KV adjustment according to patient size. FINDINGS: No fracture or dislocation is seen. Specifically sub trochanteric left femur appears unremarkable. No significant joint effusion. Muscles normal caliber and density IMPRESSION: No evidence of a left femoral fracture
== END 2020-07-19 22:31 | disposition home or self-care (01) ==
LOC: ER 13:41
PROC: 0HQ1XZZ Repair Face Skin, External Approach (ICD-10-PCS; principal; 2020-07-19)
DX: S01.81XA Laceration without foreign body of other part of head, initial encounter (principal); W19.XXXA Unspecified fall, initial encounter; Z20.822 Contact with and (suspected) exposure to COVID-19; I10 Essential (primary) hypertension
CPT/HCPCS: 85025; 36415; 80053; 73700; 71045; 73502; 73562; 99283; 12013; U0003

== ENCOUNTER 2020-07-25 13:38 | Emergency (ER) | payer OTHER ==
--- OUTSIDE RECORDS SUMMARY | 2020-07-25 13:41 | XMS REPORT | Clinical Summary ---
:1950 Author Organization [facility] Address [address] [place] [address] Care Team Providers Name Role Phone Alma Delia Ivey MD Primary Care Provider Allergies Active Allergy Reactions Severity Noted Date Comments Meperidine 03/13/2018 Latex 03/13/2018 Penicillins 03/13/2018 Sulfa (Sulfonamide Antibiotics) 8 Medications Medication Sig Dispensed Refills Start Date End Date Status lisinopril Take 20 mg by 0 Activ e (PRINIVIL,ZESTRIL) 20 mouth daily. mg tablet pravastatin (PRAVACHOL) Take 40 mg by 0 Active 40 MG tablet mouth daily. omeprazole (PriLOSEC) Take 20 mg by 0 Active 20 MG capsule mouth daily. citalopram (CeleXA) 10 Take 10 mg by 0 Active MG tablet mouth daily. Active Problems Not on file Surgical History Surgery Date Site/Laterality Comments KNEE SURGERY Right SECTION x1 APPENDECTOMY ARTHROSCOPY, SHOULDER 03/18/2018 Shoulder/Right Procedure: ARTHROSCOPY SHOULDER DECOMPRESSION; Surgeon: Ced Mehta MD; Location: [address]; Service: Orthopedics; Laterality: Righ t; Medical History Medical History Date Comments Hypercholesteremia Hypertension Anxiety Sleep apnea Arthritis Social History Tobacco Use Types Packs/Day Years Used Date Never Smoker Smokeless Tobacco: Never Used Alcohol Use Drinks/Week oz/Week Comments No Sex Assigned at Date Recorded Not on file Last Filed Vital Signs Not on file Plan of Treatment Not on file Results Not on fileafter 07/25/2019 Insurance Payer Benefit Plan / Subscriber ID Effective Dates Phone Addre ss Type Group HU[employer]NA MEDICARE HU[employer]NA MEDICARE [id number] 2017-Present PPO PPO/PFFS/ERS 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
--- NOTE | 2020-07-25 15:04 | RAD REPORT ---
EXAM DESCRIPTION: RAD - Hip Left 2 View - 07/25/2020 2:57 pm CLINICAL HISTORY: Left hip pain status post injury FINDINGS: No fracture or dislocation is seen. Osteoporosis. If the patient continues to have symptoms to suggest an occult fracture MRI would be recommended
--- NOTE | 2020-07-25 15:06 | RAD REPORT ---
EXAM DESCRIPTION: RAD - Wrist Left 3 View - 07/25/2020 2:57 pm CLINICAL HISTORY: Left wrist pain status post injury FINDINGS: No fracture or dislocation is seen. If the patient continues to have symptoms to suggest an occult fracture then a followup plain film se harinder in 7 days would be recommended
--- NOTE | 2020-07-25 16:50 | EDPHYS ---
Physician Documentation [facility] Name: Lucia Guardado Age: 70 yrs Sex: Female : 1950 Arrival Date: 07/25/2020 Time: 13:41 Bed 11 Private MD: ED Physician Hugo Elizondo HPI: 07/25 16:35 This 70 yrs old Female presents to ER via Wheelchair with complaints of Fall cp Injury. 16:35 Details of fall: The patient fell from an upright position, while walking, and struck a cp concrete surface. Onset: The symptoms/episode began/occurred today. Associated injuries: The patient sustained left wrist, left hip. Historical: - Allergies: 14:03 Codeine; iw 14:03 Demerol; iw 14:03 PENICILLINS; iw 14:03 Sulfa (Sulfonamide Antibiotics); iw - Home Meds: 14:03 Centrum Oral daily [Active]; citalopram 10 mg tab 1 tab once daily [Active]; lisinopril iw 20 mg Oral tab 1 tab once daily [Active]; omeprazole 20 mg Oral cpDR 1 cap 2 times per day [Active]; - PMHx: 14:03 Anxiety; GERD; Hyperlipidemia; Hypertension; iw - PSHx: 14:03 ; Appendectomy; iw 14:03 shoulder; Knee surgery; iw - Immunization history:: Adult Immunizations not up to date. - Social history:: Smoking status: . ROS: 16:38 MS/extremity: Positive for pain, tenderness, of the left wrist and left hip. cp 16:38 Constitutional: Negative for fever. cp 16:38 Cardiovascular: Negative for chest pain, palpitations. 16:38 Neuro: Negative for altered mental status, loss of consciousness, syncope. 16:38 All other systems are negative. Exam: 16:45 Constitutional: The patient appears in no acute distress, alert, awake, cp non-diaphoretic, non-toxic, well developed, well nourished. 16:45 Head/Face: Normocephalic, atraumatic. cp 16:45 Neck: ROM/movement: pain, is not appreciated, limited range of motion, is not appreciated. 16:45 Chest/axilla: Inspection: normal. 16:45 Cardiovascular: Rate: normal, Rhythm: regular, Edema: is not appreciated. 16:45 Respiratory: the patient does not display signs of respiratory distress, Respirations: normal, no use of accessory muscles, no retractions, labored breathing, is not present, Breath sounds: are clear throughout. 16:45 Abdomen/GI: Inspection: abdomen appears normal, Palpation: abdomen is soft and non-tender, in all quadrants. 16:45 Back: pain, is absent, ROM is normal. 16:45 Musculoskeletal/extremity: Extremities: grossly normal except: noted in the left wrist: pain, tenderness, There is no evidence of decreased ROM, deformity, noted in the left hip: pain, tenderness, no evidence of decreased ROM, deformity, Pulses: noted to be 2+ in the left radial artery, Sensation intact. 16:45 Neuro: Orientation: to person, place \T\ time. Mentation: is normal. Vital Signs: 14:01 BP 150 / 76; Pulse 67; Resp 16; Temp 97.6; Pulse Ox 98% on R/A; Weight 90.26 kg; Height iw 5 ft. 6 in. (167.64 cm); 14:01 Body Mass Index 32.12 (90.26 kg, 167.64 cm) iw Procedures: 17:05 Splinting: Splint applied to left wrist using wrist splint, applied by nurse. Examined cp by me, post splint application: neurovascular intact, Patient tolerated well. MDM: 16:35 Patient medically screened. cp 16:45 Differential diagnosis: contusion, fracture, multiple trauma, sprain, strain. cp 16:49 Data reviewed: vital signs, nurses notes, radiologic studies, plain films. cp 16:49 Test interpretation: by ED physician or midlevel provider: plain radiologic studies. cp Counseling: I had a detailed discussion with the patient and/or guardian regarding: the historical points, exam findings, and any diagnostic results supporting the discharge/admit diagnosis, radiology results, to return to the emergency department if symptoms worsen or persist or if there are any questions or concerns that arise at home. Response to treatment: the patient's symptoms have markedly improved after treatment, and as a result, I will discharge patient. ED course: VSS. Xrays negative for acute fracture. Will discharge to home for continued monitoring. 07/25 14:05 Order name: Hip Left 2 View XRAY; Complete Time: 17:04 iw 07/25 17:04 Interpretation: Report reviewed. cp 07/25 14:05 Order name: Wrist Left (3 View) XRAY; Complete Time: 17:04 iw 07/25 17:04 Interpretation: Report reviewed. cp 07/25 16:36 Order name: Splint - Wrist: left; Complete Time: 17:02 cp Administered Medications: 17:02 Drug: Ibuprofen 800 mg Route: PO; aa5 17:02 Drug: Tylenol 650 mg Route: PO; aa5 Disposition: 17:10 Chart complete. cp 17:16 Co-signature as Attending Physician, Hugo Elizondo MD. rn Disposition: 07/25/20 16:49 Discharged to Home. Impression: Other specified sprain of left wrist, Pain in left hip, Fall on same level from slipping, tripping and stumbling. - Condition is Stable. - Discharge Instructions: Wrist Splint, Hip Pain. - Prescriptions for Mobic 7.5 mg Oral Tablet - take 1 tablet by ORAL route once daily take with food; 20 tablet. - Medication Reconciliation Form, Thank You Letter, Antibiotic Education, Prescription Opioid Use form. - Follow up: Private Physician; When: 2 - 3 days; Reason: Worsening of condition. - Problem is new. - Symptoms have improved. Signatures: Dispatcher [employer] EDDeborah Simon RN RN iw Nieto, Roman, MD MD rn Calderon, Audri, RN RN aa5 Bryce Murphy PA PA cp Corrections: (The following items were deleted from the chart) 17:07 16:49 07/25/2020 16:49 Discharged to Home. Impression: Other specified sprain of left aa5 wrist; Pain in left hip; Fall on same level from slipping, tripping and stumbling. Condition is Stable. Forms are Medication Reconciliation Form, Thank You Letter, Antibiotic Education, Prescription Opioid Use. Follow up: Private Physician; When: 2 - 3 days; Reason: Worsening of condition. Problem is new. Symptoms have improved. cp
--- NOTE | 2020-07-25 16:50 | ER ---
Nurse's Notes [facility] Name: Lucia Guardado Age: 70 yrs Sex: Female : 1950 Arrival Date: 07/25/2020 Time: 13:41 Bed 11 Private MD: Diagnosis: Other specified sprain of left wrist;Pain in left hip;Fall on same level from slipping, tripping and stumbling Presentation: 07/25 14:01 Chief complaint: Patient states: was coming out of doctors office and stumbled and iw fell, landed on her left hip and left wrist. 14:01 Acuity: TAB 4 iw 14:01 Coronavirus screen: At this time, the client does not indicate any symptoms associated iw with coronavirus-19. Ebola Screen: Patient negative for fever greater than or equal to 101.5 degrees Fahrenheit, and additional compatible Ebola Virus Disease symptoms Patient denies exposure to infectious person. Patient denies travel to an Ebola-affected area in the 21 days before illness onset. No symptoms or risks identified at this time. Initial Sepsis Screen: Does the patient meet any 2 criteria? No. Patient's initial sepsis screen is negative. Does the patient have a suspected source of infection? No. Patient's initial sepsis screen is negative. Risk Assessment: Do you want to hurt yourself or someone else? Patient reports no desire to harm self or others. Onset of symptoms was July 25, 2020. 14:01 Method Of Arrival: Wheelchair iw Historical: - Allergies: 14:03 Codeine; iw 14:03 Demerol; iw 14:03 PENICILLINS; iw 14:03 Sulfa (Sulfonamide Antibiotics); iw - Home Meds: 14:03 Centrum Oral daily [Active]; citalopram 10 mg tab 1 tab once daily [Active]; lisinopril iw 20 mg Oral tab 1 tab once daily [Active]; omeprazole 20 mg Oral cpDR 1 cap 2 times per day [Active]; - PMHx: 14:03 Anxiety; GERD; Hyperlipidemia; Hypertension; iw - PSHx: 14:03 ; Appendectomy; iw 14:03 shoulder; Knee surgery; iw - Immunization history:: Adult Immunizations not up to date. - Social history:: Smoking status: . Assessment: 16:20 General: Appears comfortable, Behavior is calm, cooperative. Pain: Complains of pain in aa5 left wrist Pain currently is 6 out of 10 on a pain scale. Neuro: Level of Consciousness is awake, alert, obeys commands, Oriented to person, place, time, situation. Cardiovascular: Patient's skin is warm and dry. Respiratory: Airway is patent Respiratory effort is even, unlabored, Respiratory pattern is regular, symmetrical. GI: No signs and/or symptoms were reported involving the gastrointestinal system. : No signs and/or symptoms were reported regarding the genitourinary system. EENT: No signs and/or symptoms were reported regarding the EENT system. Derm: Skin is pink, warm \T\ dry. Musculoskeletal: Range of motion: intact in all extremities. 17:05 Reassessment: Patient is alert, oriented x 3, equal unlabored respirations, skin aa5 warm/dry/pink. Vital Signs: 14:01 BP 150 / 76; Pulse 67; Resp 16; Temp 97.6; Pulse Ox 98% on R/A; Weight 90.26 kg; Height iw 5 ft. 6 in. (167.64 cm); 14:01 Body Mass Index 32.12 (90.26 kg, 167.64 cm) iw ED Course: 13:41 Patient arrived in ED. ds1 14:01 Triage completed. iw 14:03 Arm band placed on. iw 14:57 Hip Left 2 View XRAY In Process Unspecified. EDMS 14:57 Wrist Left (3 View) XRAY In Process Unspecified. EDMS 16:14 Bryce Murphy PA is PHCP. cp 16:14 Hugo Elizondo MD is Attending Physician. cp 16:20 Patient has correct armband on for positive identification. Bed in low position. Call aa5 light in reach. 16:21 Ciera Cabrera, AGATA is Primary Nurse. aa5 17:05 No provider procedures requiring assistance completed. Patient did not have IV access aa5 during this emergency room visit. Administered Medications: 17:02 Drug: Ibuprofen 800 mg Route: PO; aa5 17:02 Drug: Tylenol 650 mg Route: PO; aa5 Outcome: 16:49 Discharge ordered by . cp 17:05 Discharged to home ambulatory. aa5 17:05 Condition: stable 17:05 Discharge instructions given to patient, Instructed on discharge instructions, follow up and referral plans. medication usage, Demonstrated understanding of instructions, follow-up care, medications, Prescriptions given X 1. 17:07 Patient left the ED. aa5 Signatures: Dispatcher [employer] EDDE Randi Bo ds1 Deborah Menjivar, RN RN iw Ciera Cabrera RN RN aa5 Bryce Murphy PA PA cp
[2020-07-25] MEDS ORDERED: ACETAMINOPHEN 325 MG TABLET ONE (17:03)
[2020-07-25] MEDS ORDERED: IBUPROFEN 400 MG TAB ONE (17:03)
[2020-07-25 17:11] VITALS: BP 150/76; TEMP 97.6; O2SAT 98
== END 2020-07-25 17:07 | disposition home or self-care (01) ==
LOC: ER 13:38
DX: S63.592A Other specified sprain of left wrist, initial encounter (principal); M25.552 Pain in left hip; W01.0XXA Fall on same level from slipping, tripping and stumbling without subsequent striking against object, initial encounter; Y93.01 Activity, walking, marching and hiking; Y92.9 Unspecified place or not applicable; Z88.0 Allergy status to penicillin; Z88.2 Allergy status to sulfonamides; Z88.5 Allergy status to narcotic agent; I10 Essential (primary) hypertension; E78.5 Hyperlipidemia, unspecified; F41.9 Anxiety disorder, unspecified
CPT/HCPCS: 99283

== ENCOUNTER 2024-03-30 03:05 | Emergency (ER) | payer OTHER ==
[2024-03-30 04:16] LABS: Hemoglobin 13.3 g/dL (12.0-15.0); Red Cell Distribution Width 13.3 % (12.1-15.2)
[2024-03-30 04:17] LABS: PT Prothrombin Time 10.3 SECONDS (9.4-12.5); PTT, Activated Partial Thromb 25.6 SECONDS (24.3-36.9); Protime INR 0.92
[2024-03-30 04:19] LABS: Absolute Eosinophils 0.3 K/uL (0-0.5); Absolute Monocytes 0.5 K/uL (0.1-1.3); Absolute Neutrophil 6.8 K/uL (1.8-8.0); Basophils % 0.6 % (0-1.3); Eosinophils % 3.7 % (0-4.4); Hematocrit 38.7 % (36.0-45.0); Lymphocytes % 11.6 % (15.3-44.8); MCH 30.4 pg (27.0-35.0); MCHC 34.4 g/dL (32.0-36.0); MCV 88.3 fL (80-100); MPV 7.5 fL (7.6-11.3); Monocytes % 6.1 % (3.3-12.3); Nucleated RBC Absolute Count 0.1 (0-0); Nucleated Red Blood Cells % 0.6 % (0-0); Platelets 254 thou/uL (152-406); RBC Red Blood Cell Count 4.38 M/uL (3.86-4.86)
[2024-03-30 04:35] LABS: Albumin 3.4 g/dL (3.4-5.0); Anion Gap 7.3 mEq/L (5.0-15.0); Bilirubin Total 0.6 mg/dL (0.2-1.0); Globulin 3.5 g/dL (2.3-3.5); Protein, Total 6.9 g/dL (6.4-8.2)
[2024-03-30 04:36] LABS: Potassium 4.3 mEq/L (3.5-5.1)
--- NOTE | 2024-03-30 07:09 | RAD REPORT ---
CLINICAL HISTORY: Rectal bleeding. COMPARISON: CT Abdomen and Pelvis 03/05/2019. TECHNIQUE: CT PELVIS ANGIOGRAPHY WITH IV CONTRAST, CT ABDOMEN WITH IV CONTRAST on 03/30/2024 12:00 AM CDT This exam was performed according to our departmental dose-optimization program, which includes autom ated exposure control, adjustment of the mA and/or kV according to patient size and/or use of iterative reconstruction technique. The study was performed according to an angiographic protocol wit h 3D post-processing. This involves 3D reconstructions, MIPs, volume rendered images and/or shaded surface rendering. FINDINGS: Lower lungs are clear. Abdomen: The liver is normal in appearance. There is no biliary dilatation. Gallbladder is normal in appearance. The pancreas and spleen are normal in appearance. Adrenal glands are normal. Kidneys are moderately atrophic. Abdominal aorta and its major branches are diffusely patent. There is no free air. There is no retrop eritoneal adenopathy. Pelvis: There is mild thickening of much of the descending colon. There is minimal diverticulosis of the sigmoid colon. Urinary bladder is unremarkable. There is no free fluid. Uterus is normal in size. Appendectomy was performed. Uterus is normal in size. Skeleton: There are no acute osseous findings. No suspicious bony lesions. IMPRESSION: Mild descending colitis. No definite vascular abnormalities for age. Electronically signed by: Hank Tom MD 03/30/2024 06:56 AM CDT Due to temporary technical issues with the [employer]ACS/[employer] reporting system, reports are being sonia d by the in-house radiologist without review as a courtesy to ensure prompt reporting the interpreting radiologist is fully responsible for the content of the report. Transcribed Date/Time: 03/30/2024 7:09 AM
--- NOTE | 2024-03-30 07:09 | RAD REPORT ---
CLINICAL HISTORY: Rectal bleeding. COMPARISON: CT Abdomen and Pelvis 03/05/2019. TECHNIQUE: CT PELVIS ANGIOGRAPHY WITH IV CONTRAST, CT ABDOMEN WITH IV CONTRAST on 03/30/2024 12:00 AM CDT This exam was performed according to our departmental dose-optimization program, which includes autom ated exposure control, adjustment of the mA and/or kV according to patient size and/or use of iterative reconstruction technique. The study was performed according to an angiographic protocol wit h 3D post-processing. This involves 3D reconstructions, MIPs, volume rendered images and/or shaded surface rendering. FINDINGS: Lower lungs are clear. Abdomen: The liver is normal in appearance. There is no biliary dilatation. Gallbladder is normal in appearance. The pancreas and spleen are normal in appearance. Adrenal glands are normal. Kidneys are moderately atrophic. Abdominal aorta and its major branches are diffusely patent. There is no free air. There is no retrop eritoneal adenopathy. Pelvis: There is mild thickening of much of the descending colon. There is minimal diverticulosis of the sigmoid colon. Urinary bladder is unremarkable. There is no free fluid. Uterus is normal in size. Appendectomy was performed. Uterus is normal in size. Skeleton: There are no acute osseous findings. No suspicious bony lesions. IMPRESSION: Mild descending colitis. No definite vascular abnormalities for age. Electronically signed by: Hank Tom MD 03/30/2024 06:56 AM CDT Due to temporary technical issues with the PACS/[employer] reporting system, reports are being sonia d by the in-house radiologist without review as a courtesy to ensure prompt reporting the interpreting radiologist is fully responsible for the content of the report. Transcribed Date/Time: 03/30/2024 7:09 AM
--- NOTE | 2024-03-30 07:19 | EDPHYS ---
Physician Documentation [facility] Name: Lucia Guardado Age: 74 yrs Sex: Female : 1950 Arrival Date: 03/30/2024 Time: 03:05 Bed 14 Private MD: Francisco Javier Ivey ED Physician Gavino Ennis HPI: 03/30 03:38 This 74 yrs old Female presents to ER via Ambulatory with complaints of Rectal rn Bleeding, Weakness. 03:38 The patient presents to the emergency department with bleeding from the rectum/anus. rn Onset: The symptoms/episode began/occurred last night. Modifying factors: The symptoms are alleviated by nothing, The symptoms are aggravated by bowel movement. Associate signs and symptoms: Pertinent positives: abdominal pain in the , lower GI bleeding. The patient has experienced a previous episode. Patient reports lower abdominal cramping and blood in stool since last night. Reports yesterday started with diarrhea that initially was nonbloody and then early this morning had abdominal cramps, went to bathroom and passed bright red blood. Denies any blood thinners other than baby aspirin. No trauma. Has happened once before and was attributed to intestinal infection, got antibiotics and it improved. Denies shortness of breath. Has only passed blood once. Historical: - Allergies: 03:26 Codeine; kj2 03:26 Demerol; kj2 03:26 PENICILLINS; kj2 03:26 Sulfa (Sulfonamide Antibiotics); kj2 - Home Meds: 03:26 Centrum Oral daily [Active]; kj2 - PMHx: 03:26 Anxiety; GERD; Hyperlipidemia; Hypertension; kj2 - Immunization history:: Adult Immunizations up to date. - Infectious Disease History:: Denies. - Social history:: Smoking status: Patient denies any tobacco usage or history of. - Family history:: not pertinent. - Hospitalizations: : No recent hospitalization is reported. ROS: 03:38 Constitutional: Negative for fever, chills, and weight loss, Cardiovascular: Negative rn for chest pain, palpitations, and edema, Respiratory: Negative for shortness of breath, cough, wheezing, and pleuritic chest pain, Abdomen/GI: Positive for lower abdominal pain with diarrhea and blood in stool Neuro: Negative for headache, numbness, tingling, and seizure, Exam: 03:38 Constitutional: This is a well developed, well nourished patient who is awake, alert, rn and in no acute distress. Cardiovascular: Regular rate and rhythm. No pulse deficits. Respiratory: No increased work of breathing, no retractions or nasal flaring. Abdomen/GI: Soft, mild suprapubic and left lower quadrant tenderness. No rebound or masses Skin: Does not appear pale or cyanotic Vital Signs: 03:22 BP 130 / 76; Pulse 77; Resp 18; Temp 98.5; Pulse Ox 97% on R/A; Weight 93.44 kg; Height kj2 5 ft. 6 in. ; Pain 7/10; 04:38 BP 145 / 88; Pulse 74; Resp 18; Temp 98; Pulse Ox 100% on R/A; kj2 05:44 BP 146 / 86; Pulse 76; Resp 18; Pulse Ox 100% on R/A; kj2 06:47 BP 152 / 78; Pulse 97; Resp 16; Pulse Ox 100% on R/A; kj2 07:05 BP 151 / 71; Pulse 79; Resp 18; Pulse Ox 99% on R/A; db 03:22 Body Mass Index 33.25 (93.44 kg, 167.64 cm) kj2 03:22 Pain Scale: Adult kj2 MDM: 03:10 Medical Screening Exam initiated rn 07:21 Differential diagnosis: Colitis vs GI bleed vs Anemia. Data reviewed: vital signs, ms3 nurses notes, lab test result(s), radiologic studies, and as a result, I will discharge patient. Counseling: I had a detailed discussion with the patient and/or guardian regarding the historical points, exam findings, and any diagnostic results supporting the discharge/admit diagnosis, lab results, radiology results, the need for outpatient follow up, to return to the emergency department if symptoms worsen or persist or if there are any questions or concerns that arise at home. Special discussion: Based on the patient's Hx, exam, and Dx evaluation, there is no indication for emergent surgery or inpatient Tx. It is understood by the patient/guardian that if the Sx's persist or worsen they need to return immediately for re-evaluation. ED course: Discussed CT finding and labs with patient and her . Patient to follow-up with primary care physician in 2 to 3 days. Patient understands agrees with plan. All questions were answered. Return precautions discussed include increased bleeding, lightheadedness, shortness of breath, worsening symptoms, or any other concerns. On reevaluation patient is alert and oriented x 4, in no apparent distress, nontoxic-appearing, speaking full sentences.. 03/30 03:11 Order name: CBC with Diff; Complete Time: 04:38 rn 03/30 03:11 Order name: CMP; Complete Time: 04:38 rn 03/30 03:11 Order name: Lipase; Complete Time: 04:38 rn 03/30 03:11 Order name: Type And Screen; Complete Time: 05:04 rn 03/30 03:11 Order name: Protime (+inr); Complete Time: 04:38 rn 03/30 03:11 Order name: Ptt, Activated; Complete Time: 04:38 rn 03/30 03:11 Order name: Abdomen Angio CT rn 03/30 05:11 Order name: Pelvis Angio EDMS 03/30 03:11 Order name: IV Saline Lock; Complete Time: 04:18 rn 03/30 03:11 Order name: Labs collected and sent; Complete Time: 04:18 rn Administered Medications: No medications were administered Disposition Summary: 03/30/24 07:18 Discharge Ordered Notes: Location: Home ms3 Condition: Stable ms3 Diagnosis - Colitis ms3 - Rectal Bleeding ms3 Followup: ms3 - With: Francisco Javier Ivey MD - When: 2 - 3 days - Reason: Recheck today's complaints Followup: ms3 - With: Luis Felipe Huynh MD - When: 2 - 3 days - Reason: Recheck today's complaints Discharge Instructions: - Discharge Summary Sheet ms3 - Colitis ms3 Forms: - Medication Reconciliation Form ms3 - Antibiotic Education ms3 - Prescription Opioid Use ms3 - Patient Portal Instructions ms3 - Leadership Thank You Letter ms3 Prescriptions: - Cipro 500 mg Oral Tablet - take 1 tablet ORAL route every 12 hours for 10 days; 20 tablet; Refills: 0, ms3 Product Selection Permitted - Flagyl 500 mg Oral tablet - take 1 tablet ORAL route every 12 hours for 10 days; 20 tablet; Refills: 0, ms3 Product Selection Permitted Signatures: Dispatcher [employer] Hugo Diane MD MD rn Sims, Marcus, DO DO ms3 Brigida Nguyen RN RN kj2 Corrections: (The following items were deleted from the chart) 03:12 03:12 CBC+H.LAB.BRZ ordered. EDMS EDMS 03:12 03:12 COMPREHENSIVE METABOLIC PANEL+C.LAB.BRZ ordered. EDMS EDMS 03:12 03:12 LIPASE+C.LAB.BRZ ordered. EDMS EDMS 03:12 03:12 TYPE AND SCREEN+BB.LAB.BRZ ordered. EDMS EDMS 03:12 03:12 PROTIME (+INR)+COAG.LAB.BRZ ordered. EDMS EDMS 03:12 03:12 PTT, ACTIVATED+COAG.LAB.BRZ ordered. EDMS EDMS 03:12 03:12 Abdomen Angio+CT.RAD.BRZ ordered. EDMS EDMS
--- NOTE | 2024-03-30 07:19 | ER ---
Nurse's Notes [facility] Name: Lucia Guardado Age: 74 yrs Sex: Female : 1950 Arrival Date: 03/30/2024 Time: 03:05 Bed 14 Private MD: Francisco Javier Ivey Diagnosis: Colitis;Rectal Bleeding Presentation: 03/30 03:22 Chief complaint: Patient states: RECTAL BLEEDING, STOMACH CRAMPS AND WEAKNESS. kj2 Coronavirus screen: At this time, the client does not indicate any symptoms associated with coronavirus-19. Ebola Screen: No symptoms or risks identified at this time. Initial Sepsis Screen: Does the patient meet any 2 criteria? No. Patient's initial sepsis screen is negative. Does the patient have a suspected source of infection? No. Patient's initial sepsis screen is negative. Risk Assessment: Do you want to hurt yourself or someone else? Patient reports no desire to harm self or others. Onset of symptoms was March 29, 2024. 03:22 Method Of Arrival: Ambulatory [facility] 03:22 Acuity: TAB 3 kj2 Triage Assessment: 03:24 The onset of the patients symptoms was March 29, 2024 at 20:30. General: Appears in kj2 no apparent distress. Behavior is calm, cooperative. Pain: Complains of pain in ABDOMEN Pain currently is 6 out of 10 on a pain scale. Neuro: Level of Consciousness is awake, alert, obeys commands, Oriented to person, place, time, situation, Reports weakness. Cardiovascular: Patient's skin is warm and dry. Respiratory: Airway is patent. GI: Reports lower abdominal pain, upper abdominal pain, cramping. : No signs and/or symptoms were reported regarding the genitourinary system. Historical: - Allergies: 03:26 Codeine; kj2 03:26 Demerol; kj2 03:26 PENICILLINS; kj2 03:26 Sulfa (Sulfonamide Antibiotics); kj2 - Home Meds: 03:26 Centrum Oral daily [Active]; kj2 - PMHx: 03:26 Anxiety; GERD; Hyperlipidemia; Hypertension; kj2 - Immunization history:: Adult Immunizations up to date. - Infectious Disease History:: Denies. - Social history:: Smoking status: Patient denies any tobacco usage or history of. - Family history:: not pertinent. - Hospitalizations: : No recent hospitalization is reported. Screenin:27 [facility] ED Fall Risk Assessment (Adult) History of falling in the last 3 months, kj2 including since admission No falls in past 3 months (0 pts) Confusion or Disorientation No (0 pts) Intoxicated or Sedated No (0 pts) Impaired Gait No (0 pts) Mobility Assist Device Used No (0 pt) Altered Elimination No (0 pt) Score/Fall Risk Level 0 - 2 = Low Risk Maintained a safe environment, Educated pt \T\ family on fall prevention, incl call for assistance when getting out of bed, Hourly rounding (assess needs \T\ fall precautionary measures) done. Abuse screen: Denies threats or abuse. Denies injuries from another. Nutritional screening: No deficits noted. Tuberculosis screening: No symptoms or risk factors identified. Assessment: 03:29 General: SEE TRIAGE ASSESSMENT. kj2 04:39 Reassessment: Patient appears in no apparent distress at this time. Patient and/or kj2 family updated on plan of care and expected duration. Pain level reassessed. Patient is alert, oriented x 3, equal unlabored respirations, skin warm/dry/pink. 05:44 Reassessment: Patient appears in no apparent distress at this time. Patient and/or kj2 family updated on plan of care and expected duration. Pain level reassessed. Patient is alert, oriented x 3, equal unlabored respirations, skin warm/dry/pink. 06:45 Reassessment: Patient appears in no apparent distress at this time. kj2 07:18 Reassessment: PATIENT AMBULATORY TO RESTROOM. db 07:32 Reassessment: Patient appears in no apparent distress at this time. Patient and/or db family updated on plan of care and expected duration. Pain level reassessed. Patient is alert, oriented x 3, equal unlabored respirations, skin warm/dry/pink. Patient states feeling better. Vital Signs: 03:22 BP 130 / 76; Pulse 77; Resp 18; Temp 98.5; Pulse Ox 97% on R/A; Weight 93.44 kg; Height kj2 5 ft. 6 in. ; Pain 7/10; 04:38 BP 145 / 88; Pulse 74; Resp 18; Temp 98; Pulse Ox 100% on R/A; kj2 05:44 BP 146 / 86; Pulse 76; Resp 18; Pulse Ox 100% on R/A; kj2 06:47 BP 152 / 78; Pulse 97; Resp 16; Pulse Ox 100% on R/A; kj2 07:05 BP 151 / 71; Pulse 79; Resp 18; Pulse Ox 99% on R/A; db 03:22 Body Mass Index 33.25 (93.44 kg, 167.64 cm) kj2 03:22 Pain Scale: Adult kj2 ED Course: 03:10 Patient arrived in ED. gm2 03:10 Hugo Elizondo MD is Attending Physician. rn 03:10 Francisco Javier Ivey MD is Private Physician. gm2 03:21 Brigida Nguyen, AGATA is Primary Nurse. kj2 03:24 Triage completed. kj2 03:28 Patient has correct armband on for positive identification. Adult w/ patient. Provided kj2 Education on: CALL LIGHT. 03:30 Arm band placed on Patient placed in an exam room. kj2 03:30 Inserted saline lock: 20 gauge in right antecubital area, using aseptic technique. kj2 Blood collected. Flushed with 10 mL NS. 04:40 Assisted to bathroom. kj2 05:[address] In Process Unspecified. EDMS 05:39 Pelvis Angio In Process Unspecified. EDMS 05:47 No provider procedures requiring assistance completed. kj2 07:08 Attending Physician role handed off by Hugo Elizondo MD ms3 07:08 Gavino Ennis DO is Attending Physician. ms3 07:16 Francisco Javier Ivey MD is Referral Physician. ms3 07:17 Luis Felipe Huynh MD is Referral Physician. ms3 07:32 Pulse ox on. NIBP on. Warm blanket given. Pillow given. db 07:32 IV discontinued, intact, bleeding controlled, No redness/swelling at site. db Administered Medications: No medications were administered Medication: 04:40 VIS not applicable for this client. kj2 Outcome: 07:18 Discharge ordered by . ms3 07:32 Discharged to home ambulatory, with family, db 07:32 Condition: stable 07:32 Discharge instructions given to patient, family, Instructed on discharge instructions, follow up and referral plans. Prescriptions given X 2, 07:33 Patient left the ED. db Signatures: Dispatcher [employer] EDMS Hugo Elizondo MD MD rn Sims, Marcus, DO DO ms3 Elizabeth Kilgore, RN RN db Albina Pacheco gm2 Brigida Nguyen, RN RN kj2
[2024-03-30 09:19] VITALS: TEMP 98
[2024-03-30 09:28] VITALS: BP 151/71; O2SAT 99
== END 2024-03-30 07:33 | disposition home or self-care (01) ==
LOC: ER 03:05
DX: K52.9 Noninfective gastroenteritis and colitis, unspecified (principal); I10 Essential (primary) hypertension
CPT/HCPCS: 85025; 36415; 86900; 86850; 85610; 86901; 85730; 83690; 80053; 72191; 74175; Q9967; 99284

== ENCOUNTER 2024-07-07 07:08 | Emergency (ER) | payer OTHER ==
[2024-07-07] MEDS ORDERED: TRAMADOL HCL 50 MG TAB ONE (07:56)
[2024-07-07] MEDS ORDERED: LIDOCAINE 1% MPF 5 ML VIAL ONE (08:05)
[2024-07-07] MEDS ORDERED: TDAP (DIPHTH,PERTUSS(ACELL),TET VAC) 0.5 ML VIAL IMVAC ONE (08:05)
--- NOTE | 2024-07-07 08:43 | RAD REPORT ---
EXAM: CT brain without contrast HISTORY: TRAUMA COMPARISON: 03/31/2016 TECHNIQUE: Multiple contiguous axial images were obtained and a CT of the brain without contrast. Sag ittal and coronal reformats were performed. FINDINGS: No evidence of hydrocephalus, intracranial hemorrhage, or extra-axial fluid collection. The brain is normal in morphology. The calvarium is intact. The visualized paranasal sinuses and mastoid air cells are essentially clear . IMPRESSION: No evidence of acute intracranial abnormality. EXAM: CT of the cervical spine without contrast HISTORY: TRAUMA COMPARISON: None TECHNIQUE: Multiple contiguous axial images were obtained in a CT of the cervical spine without contr ast. Sagittal and coronal reformats were performed. FINDINGS: The vertebral bodies demonstrate normal height and alignment. No evidence of acute fracture or subluxation.. Multilevel up to moderate degenerative changes with disc height loss most pronounced at C4-5, C5-6, and C6-7. The degrees of uncovertebral joint and facet remodeling, contributing to mild to moderate degrees of bilateral neural foraminal narrowing at the same levels. No prevertebral soft tissue swelling is seen. The posterior facets are well aligned. Normal alignment of the skull base with the cervical spine is seen. The lung apices are unremarkable. IMPRESSION: No evidence of acute osseous abnormality of the cervical spine. Degenerative changes as above.
--- NOTE | 2024-07-07 08:45 | RAD REPORT ---
EXAMINATION: CT MAXILLOFACIAL WITHOUT CONTRAST CLINICAL INDICATION: [facility] MAIN TRAUMA Bed Name: 14 TECHNIQUE: Axial images were obtained through the facial bones and orbits without intravenous contras t. Sagittal and coronal reconstructions were created from the data. One or more of the following dose reduction techniques were used: Automated exposure control, adjustment of the mA and/or kV accor ding to patient size, and/or iterative reconstruction. Unless otherwise specified, incidental findings do not require dedicated imaging follow-up. COMPARISON: No prior exam. FINDINGS: SOFT TISSUE: No significant abnormalities. BONES: No evidence of fracture, dislocation, or aggressive osseous lesions. No lesion of the visuali zed skull base or calvarium. ORBITS: The globes are intact. No intraorbital hemorrhage or mass. SINUSES: The paranasal sinuses and tympanomastoid cavities are predominantly clear. Then streak artifact related to dental hardware limits soft tissue and bony evaluation at that level. IMPRESSION: No acute facial fractures.
[2024-07-07] MEDS ORDERED: MORPHINE 2 MG/ML SYR ONE (09:36)
--- NOTE | 2024-07-07 14:38 | RAD REPORT ---
EXAMINATION: MRI CERVICAL SPINE WITHOUT CONTRAST CLINICAL INDICATION: Female, 74 years old. trauma, rule out ligamentous injury TECHNIQUE: Multiplanar multisequence MR images were obtained of the cervical spine without intravenou s contrast. Unless otherwise specified, incidental findings do not require dedicated imaging follow-up. [id number]. COMPARISON: No prior exam. FINDINGS: ALIGNMENT: The cervical spine has normal alignment. BONE: Degenerative endplate edema is present at the C3-4 disc space. CORD: The cervical spinal cord is normal in size, contour and signal intensity. BRAIN: The included intracranial structures are grossly normal. The craniocervical junction is normal . SOFT TISSUE: The paraspinal soft tissues are normal. EVALUATION OF THE INDIVIDUAL LEVELS: C2-C3: Uncovertebral joint hypertrophy results in mild left neural foraminal narrowing. The right americo ral foramen is adequate. No central spinal stenosis. C3-C4: Posterior disc osteophyte complex and uncovertebral joint hypertrophy results in moderate bila teral neural foraminal narrowing. No central spinal stenosis. C4-C5: Posterior disc osteophyte complex that is left eccentric as well as uncovertebral joint hypert rophy results in severe left and mild right neural foraminal narrowing. Mild central spinal stenosis is present. C5-C6: Posterior disc osteophyte complex and uncovertebral joint hypertrophy results in severe left a nd mild right neural foraminal narrowing. Mild central spinal stenosis. C6-C7: Small posterior disc osteophyte complex and uncovertebral joint hypertrophy results in mild bi lateral neural foraminal narrowing. No central spinal stenosis. C7-T1: Disc is normal in height and signal intensity. No significant spinal canal or neural foraminal stenosis. IMPRESSION: No evidence of significant trauma to the cervical spine. Specifically, no evidence of ligamentous inj ury or traumatic malalignment. Degenerative endplate edema is present at C3-4. Varying degrees of neural foraminal narrowing noted. At most, mild central spinal stenosis is present.
--- NOTE | 2024-07-07 15:00 | EDPHYS ---
Physician Documentation [facility] Name: Lucia Guardado Age: 74 yrs Sex: Female : 1950 Arrival Date: 07/07/2024 Time: 07:08 Bed 14 Private MD: ED Physician Jimmy Valles HPI: 07/07 08:00 This 74 yrs old Female presents to ER via Wheelchair with complaints of Fall Injury, rt Facial Injury. 08:00 Patient presents to the ED with trip and fall with pain to the face, neck. Reports an rt abrasion to the nose, face. Denies near syncopal symptoms, loss of consciousness. Unclear when her last tetanus immunization was. Symptoms are moderate in severity, no other aggravating or alleviating factors.. Historical: - Allergies: 07:30 Codeine; ha1 07:30 Demerol; ha1 07:30 PENICILLINS; ha1 07:30 Sulfa (Sulfonamide Antibiotics); ha1 07:30 Latex, Natural Rubber; ha1 - PMHx: 07:30 Anxiety; GERD; Hyperlipidemia; Hypertension; ha1 - Immunization history:: Adult Immunizations Last tetanus immunization: > 10 years ago. - Infectious Disease History:: Denies. - Social history:: Smoking status: Patient denies any tobacco usage or history of. - Family history:: not pertinent. ROS: 08:00 Constitutional: Negative for fever, chills, and weight loss, Respiratory: Negative for rt shortness of breath, cough, wheezing, and pleuritic chest pain, Abdomen/GI: Negative for abdominal pain, nausea, vomiting, diarrhea, and constipation, MS/Extremity: Negative for injury and deformity, Skin: Negative for injury, rash, and discoloration, 08:00 Neck: Positive for pain with movement, pain at rest, 08:00 Neuro: Positive for headache, Negative for loss of consciousness, Exam: 08:00 Constitutional: ' Chest/axilla: Normal chest wall appearance and motion. Nontender rt with no deformity. No lesions are appreciated. Cardiovascular: Regular rate and rhythm with a normal S1 and S2. No gallops, murmurs, or rubs. Normal PMI, no JVD. No pulse deficits. Respiratory: Lungs have equal breath sounds bilaterally, clear to auscultation and percussion. No rales, rhonchi or wheezes noted. No increased work of breathing, no retractions or nasal flaring. Abdomen/GI: Soft, non-tender, with normal bowel sounds. No distension or tympany. No guarding or rebound. No evidence of tenderness throughout. MS/ Extremity: Pulses equal, no cyanosis. Neurovascular intact. Full, normal range of motion. Neuro: Awake and alert, GCS 15, oriented to person, place, time, and situation. Cranial nerves II-XII grossly intact. Motor strength 5/5 in all extremities. Sensory grossly intact. Cerebellar exam normal. Normal gait. 08:00 Head/face: Abrasion to the bridge of the nose, small, less than half centimeter laceration to the right ala of the nose, 1 cm laceration just to the right of the philtrum, in a V shape. 08:00 Neck: Mild tenderness of the lower paraspinal regions, no step-offs, Vital Signs: 07:28 BP 102 / 68; Pulse 62; Resp 17 S; Temp 97.9(T); Pulse Ox 94% on R/A; Weight 93.44 kg; ha1 Height 5 ft. 6 in. ; 09:00 BP 112 / 70; Pulse 67; Resp 15; Pulse Ox 96% on R/A; ko1 10:41 BP 118 / 74; Pulse 72; Resp 15; Pulse Ox 99% ; ko1 11:47 BP 129 / 67; Pulse 70; Resp 16; Pulse Ox 100% ; ko1 13:00 BP 126 / 68; Pulse 72; Resp 18; Pulse Ox 98% on R/A; kj2 14:13 BP 128 / 68; Pulse 68; Resp 18; Pulse Ox 100% on R/A; kj2 15:05 BP 124 / 72; Pulse 70; Resp 20; Temp 98; Pulse Ox 100% on R/A; kj2 07:28 Body Mass Index 33.25 (93.44 kg, 167.64 cm) [facility] Laceration: 11:03 Wound Repair of .5cm ( 0.2in ) subcutaneous laceration to nose. Linear shaped.. Distal rt neuro/vascular/tendon intact. Anesthesia: Local anesthetic administered with 1 mls of 1% lidocaine. Wound prep: Copious irrigation. Skin closed with 1 5-0 Prolene using simple sutures and sterile technique. Patient tolerated well. 11:03 Wound Repair of 1cm ( 0.4in ) subcutaneous laceration to philtrum. "V" shaped. Distal rt neuro/vascular/tendon intact. Anesthesia: Local anesthetic administered with 1 mls of 1% lidocaine. Wound prep: Copious irrigation. Skin closed with 4 5-0 Prolene using simple sutures and sterile technique. Patient tolerated well. MDM: 07:49 Medical Screening Exam initiated rt 15:59 Differential diagnosis: Intracranial hemorrhage, skull fracture, cervical spine rt fracture, ligamentous injury of cervical spine, laceration. Data reviewed: vital signs, nurses notes, radiologic studies. I considered the following discharge prescriptions or medication management in the emergency department Medications were administered in the Emergency Department. See MAR. Independent interpretation of the following test(s) in the Emergency Department CT Scan: My interpretation is No intracranial hemorrhage syndrome interpretation of CT scan images. Test considered but Not performed: Other Details Patient reports clear trip and fall, no loss of consciousness, near syncopal symptoms, EKG, labs are not indicated. Care significantly affected by the following chronic conditions: Hypertension. Counseling: I had a detailed discussion with the patient and/or guardian regarding the historical points, exam findings, and any diagnostic results supporting the discharge/admit diagnosis, radiology results, the need for outpatient follow up. Response to treatment: the patient's symptoms have mildly improved after treatment. 07/07 07:57 Order name: CT Head C Spine; Complete Time: 08:57 rt 07/07 07:57 Order name: Facial Bones W/O Con CT; Complete Time: 08:57 rt 07/07 13:49 Order name: C Spine Wo Cont; Complete Time: 14:45 EDMS 07/07 07:57 Order name: Dressing - Wound; Complete Time: 08:04 rt 07/07 07:57 Order name: Gloves, Sterile; Complete Time: 08:04 rt 07/07 07:57 Order name: Setup Suture Tray; Complete Time: 08:04 rt Administered Medications: 08:19 Drug: traMADol PO 50 mg PO once Route: PO; ko1 08:50 Follow up: Response: No adverse reaction ko1 08:19 Drug: Boostrix Tdap IM 0.5 ml IM once; as a single dose Route: IM; Site: right deltoid; ko1 08:50 Follow up: Response: No adverse reaction ko1 09:03 Drug: Lidocaine Infiltration (2 %) 5 ml 5 ml Infiltration once; to bedside {Note: given ko1 by Dr Valles.} Volume: 5 ml; Route: Infiltration; 09:38 Follow up: Response: No adverse reaction ko1 15:04 Follow up: Response: No adverse reaction kj2 09:38 Drug: morphine IM 2 mg IM once Route: IM; Site: left deltoid; ko1 10:08 Follow up: Response: No adverse reaction ko1 Disposition Summary: 07/07/24 14:59 Discharge Ordered Notes: Location: Home rt Problem: new rt Symptoms: have improved rt Condition: Stable rt Diagnosis - Mechanical fall rt - Facial laceration rt - Neck pain rt Followup: rt - With: Private Physician - When: 2 - 3 days - Reason: Discharge Instructions: - Discharge Summary Sheet rt - Fall Prevention in the Home, Adult rt - Facial Laceration rt - Neck Exercises rt Forms: - Medication Reconciliation Form rt - Antibiotic Education rt - Prescription Opioid Use rt - Patient Portal Instructions rt - Leadership Thank You Letter rt Prescriptions: - gabapentin 100 mg Oral capsule - take 1 capsule ORAL route every 8 hours; 21 capsule; Refills: 0, Product rt Selection Permitted - Cyclobenzaprine 5 mg Oral Tablet - take 1 tablet ORAL route 3 times per day As needed; 15 tablet; Refills: 0, rt Product Selection Permitted Signatures: Dispatcher [employer] Sheba Son RN RN ha1 Allison Breaux RN RN ko1 Jimmy Valles MD MD rt Brigida Nguyen RN kj2 Corrections: (The following items were deleted from the chart) 13:49 09:29 Soft Tissue Neck W/O Cont ordered. EDUT EDMS
--- NOTE | 2024-07-07 15:00 | ER ---
Nurse's Notes [facility] Name: Lucia Guardado Age: 74 yrs Sex: Female : 1950 Arrival Date: 07/07/2024 Time: 07:08 Bed 14 Private MD: Diagnosis: Mechanical fall;Facial laceration;Neck pain Presentation: 07/07 07:28 Chief complaint: Patient states: I FELL FORWARD AND HURT MY NECK AND FACE. LACERATION ha1 ON NOSE. NO LOC. Coronavirus screen: Client denies travel out of the [place] in the last 14 days. Ebola Screen: No symptoms or risks identified at this time. Initial Sepsis Screen: Does the patient meet any 2 criteria? No. Patient's initial sepsis screen is negative. Does the patient have a suspected source of infection? No. Patient's initial sepsis screen is negative. Risk Assessment: Do you want to hurt yourself or someone else? Patient reports no desire to harm self or others. Onset of symptoms was July 07, 2024. 07:28 Method Of Arrival: Wheelchair ha1 07:28 Acuity: TAB 3 ha1 Triage Assessment: 07:30 General: Appears uncomfortable, Behavior is calm, cooperative. Pain: Complains of pain ha1 in face Pain currently is 4 out of 10 on a pain scale. Quality of pain is described as aching. Neuro: Level of Consciousness is awake, alert, obeys commands, Oriented to person, place, time, situation. Cardiovascular: Capillary refill < 3 seconds Patient's skin is warm and dry. Respiratory: Airway is patent Respiratory effort is even, unlabored, Respiratory pattern is regular, symmetrical. Historical: - Allergies: 07:30 Codeine; ha1 07:30 Demerol; ha1 07:30 PENICILLINS; ha1 07:30 Sulfa (Sulfonamide Antibiotics); ha1 07:30 Latex, Natural Rubber; ha1 - PMHx: 07:30 Anxiety; GERD; Hyperlipidemia; Hypertension; ha1 - Immunization history:: Adult Immunizations Last tetanus immunization: > 10 years ago. - Infectious Disease History:: Denies. - Social history:: Smoking status: Patient denies any tobacco usage or history of. - Family history:: not pertinent. Screenin:00 [facility] ED Fall Risk Assessment (Adult) History of falling in the last 3 months, ko1 including since admission Yes- single mechanical fall (1 pt) Confusion or Disorientation No (0 pts) Intoxicated or Sedated No (0 pts) Impaired Gait No (0 pts) Mobility Assist Device Used No (0 pt) Altered Elimination No (0 pt) Score/Fall Risk Level 0 - 2 = Low Risk Oriented to surroundings, Maintained a safe environment, Educated pt \T\ family on fall prevention, incl call for assistance when getting out of bed, Assessed \T\ reinforced patient's understanding of fall precautions, Hourly rounding (assess needs \T\ fall precautionary measures) done. Abuse screen: Denies threats or abuse. Denies injuries from another. Nutritional screening: No deficits noted. Tuberculosis screening: No symptoms or risk factors identified. Assessment: 08:20 General: Appears in no apparent distress. Behavior is calm, cooperative, appropriate ko1 for age. Pain: Complains of pain in face. Neuro: No deficits noted. Cardiovascular: No deficits noted. Respiratory: No deficits noted. GI: No deficits noted. No signs and/or symptoms were reported involving the gastrointestinal system. : No deficits noted. No signs and/or symptoms were reported regarding the genitourinary system. EENT: No deficits noted. No signs and/or symptoms were reported regarding the EENT system. Derm: Skin abrasions. Musculoskeletal: No deficits noted. Injury Description: Abrasion sustained to face is. 12:05 Reassessment: Patient appears in no apparent distress at this time. Patient and/or kj2 family updated on plan of care and expected duration. Pain level reassessed. Patient is alert, oriented x 3, equal unlabored respirations, skin warm/dry/pink. 13:00 Reassessment: Patient appears in no apparent distress at this time. Patient and/or kj2 family updated on plan of care and expected duration. Pain level reassessed. Patient is alert, oriented x 3, equal unlabored respirations, skin warm/dry/pink. 14:12 Reassessment: Patient appears in no apparent distress at this time. Patient and/or kj2 family updated on plan of care and expected duration. Pain level reassessed. Patient is alert, oriented x 3, equal unlabored respirations, skin warm/dry/pink. 15:05 Reassessment: Patient appears in no apparent distress at this time. Patient and/or kj2 family updated on plan of care and expected duration. Pain level reassessed. Patient is alert, oriented x 3, equal unlabored respirations, skin warm/dry/pink. Vital Signs: 07:28 BP 102 / 68; Pulse 62; Resp 17 S; Temp 97.9(T); Pulse Ox 94% on R/A; Weight 93.44 kg; ha1 Height 5 ft. 6 in. ; 09:00 BP 112 / 70; Pulse 67; Resp 15; Pulse Ox 96% on R/A; ko1 10:41 BP 118 / 74; Pulse 72; Resp 15; Pulse Ox 99% ; ko1 11:47 BP 129 / 67; Pulse 70; Resp 16; Pulse Ox 100% ; ko1 13:00 BP 126 / 68; Pulse 72; Resp 18; Pulse Ox 98% on R/A; kj2 14:13 BP 128 / 68; Pulse 68; Resp 18; Pulse Ox 100% on R/A; kj2 15:05 BP 124 / 72; Pulse 70; Resp 20; Temp 98; Pulse Ox 100% on R/A; kj2 07:28 Body Mass Index 33.25 (93.44 kg, 167.64 cm) [facility] ED Course: 07:11 Patient arrived in ED. jj6 07:25 Jimmy Valles MD is Attending Physician. rt 07:30 Triage completed. ha1 07:51 Arm band placed on Patient placed in an exam room, on a stretcher. ll1 07:55 Allison Breaux, RN is Primary Nurse. ko1 08:09 CT Head C Spine In Process Unspecified. EDMS 08:09 Facial Bones W/O Con CT In Process Unspecified. EDMS 09:00 Patient has correct armband on for positive identification. Allergy band placed. Bed in ko1 low position. Call light in reach. Side rails up X 1. Provided Education on: wound care. Client placed on continuous cardiac and pulse oximetry monitoring. NIBP monitoring applied. ekg monitor on. Door closed. Noise minimized. Lights dimmed. Warm blanket given. Pillow given. 09:00 Ice pack to injury. ko1 09:00 No provider procedures requiring assistance completed. Patient did not have IV access ko1 during this emergency room visit. Wound care: to abrasion, located on face was cleaned with Betadine, irrigated with normal saline, ice pack applied. Patient tolerated well. 09:46 Assisted with dressing. ko1 10:41 Assist provider with laceration repair on face using sutures. Set up tray. Performed by ephraim Valles MD Patient tolerated well. 11:48 PO fluids given. ko1 14:14 C Spine Wo Cont In Process Unspecified. EDMS Administered Medications: 08:19 Drug: traMADol PO 50 mg PO once Route: PO; ko1 08:50 Follow up: Response: No adverse reaction ko1 08:19 Drug: Boostrix Tdap IM 0.5 ml IM once; as a single dose Route: IM; Site: right deltoid; ko1 08:50 Follow up: Response: No adverse reaction ko1 09:03 Drug: Lidocaine Infiltration (2 %) 5 ml 5 ml Infiltration once; to bedside {Note: given ko1 by Dr Valles.} Volume: 5 ml; Route: Infiltration; 09:38 Follow up: Response: No adverse reaction ko1 15:04 Follow up: Response: No adverse reaction kj2 09:38 Drug: morphine IM 2 mg IM once Route: IM; Site: left deltoid; ko1 10:08 Follow up: Response: No adverse reaction ko1 Medication: 09:00 Vaccine Information Statement (VIS) provided today. Questions and/or concerns ko1 addressed. VIS edition date: 2017. Outcome: 14:59 Discharge ordered by . rt 15:04 Discharged to home ambulatory, kj2 15:04 Condition: stable 15:04 Discharge instructions given to patient, Instructed on discharge instructions, follow up and referral plans. Demonstrated understanding of instructions, follow-up care, 15:29 Patient left the ED. kj2 Signatures: Dispatcher [employer] EDMS Jamil Herrera RN RN ll1 Caitlyn Bueno jj6 Sheba Hurtado RN RN ha1 Allison Breaux RN RN ko1 Jimmy Valles MD MD rt Brigida Nguyen RN RN kj2 Corrections: (The following items were deleted from the chart) 07:32 07:28 Chief complaint: Patient states: I FELL FORWARD AND HURT MY NECK AND FACE. ha1 LACERATION ON NOSE ha1
[2024-07-07 15:40] VITALS: O2SAT 100
[2024-07-07 15:42] VITALS: BP 124/72; TEMP 98
== END 2024-07-07 15:29 | disposition home or self-care (01) ==
LOC: ER 07:08
DX: S01.81XA Laceration without foreign body of other part of head, initial encounter (principal); M54.2 Cervicalgia; W01.0XXA Fall on same level from slipping, tripping and stumbling without subsequent striking against object, initial encounter
CPT/HCPCS: 70450; 72125; 70486; 76377; 72141; 12053; J2003; J2270